=== PATIENT | female | born 1960 ===

== ENCOUNTER 2016-06-12 10:35 | Inpatient (IN) ==
[2016-06-12] MEDS ORDERED: methylPREDNISolone SOD SUC 125 MG/2 ML VIAL IV STA (11:06)
[2016-06-12] MEDS ORDERED: diphenhydrAMINE 50 MG/1 ML VIAL IV STA (11:06)
[2016-06-12] MEDS ORDERED: diphenhydrAMINE 50 MG/1 ML VIAL ONE (11:09)
[2016-06-12] MEDS ORDERED: methylPREDNISolone SOD SUC 125 MG/2 ML VIAL ONE (11:09)
--- NOTE | 2016-06-12 11:10 | Emergency Department Note ---
Imtiaz Robins Brittany, am scribing for, and in the presence of, Chucky Gimenez MD 11:02. Ammy Robins James D, MD, personally performed the services described in this documentation, ascribed by Radha Kitchen in my presence, and it is both accurate and complete . Arrival - Arrival Chief Complaint: Altered Mental Status Stated Complaint: Altered LOC ED Nursing Triage Note: Brought in by EMS-transfer from [facility] ER for further evalution of altered LOC, onset 0400 this morning. Family reports that patient had a revision of left upper arm AV graft yesterday by Dr. Walker. Accucheck 235mg/dl. Mode of Arrival: Stretcher Limitations: Altered Mental Status Source: Patient, Family, RN Notes Reviewed - History of Present Illness HPI Narrative: Patient is a [place] female presenting to the ED by EMS from [facility] for further evaluation of AMS. Per family member AMS onset this morning around 0400. Family also notes that patient had a left upper arm AV graft revision per Dr. Walker yesterday, she was discharged afterwards and sent immediately to take Dialysis and was dialyzed at [facility] for about 3 hours. During triage patient had a accuchek of 235 mg/dL. Patient is nonverbal. She is a dialysis patient and takes dialysis MWF per Dr. Orozco. In room patient is tearful, confused, looks acutely ill, stating she is unsure of what today is. She does not answer questions appropriately. Patient does not know what day of the week, month, or time as of current. Patient is febrile in room. Patient has a dried bloody spot to the upper left arm of her gown, dressing to left upper arm graft is drenched in blood and will need to be redressed. Upon asking if she is in pain, patient reports some abdominal pain and becomes more tearful. While at [facility] patient also had an elevated Troponin of 1.7, creatinine of 7.6, BUN of 28, SGOT of 104, and Blood Glucose level of 188. Patient also had an elevated WBC count of 18.2, MCV of 107.8, RDW of 19.4, Hgb of 6.4, Hct of 22.1. Past medical history of HTN, CAD, PVD, Peripheral Neuropathy, IDDM, NIDDM, Dyslipidemia, Pneumonia, Renal Failure, GERD, Amputation, Intermittent Joint Pain, Anemia. Onset (ago): hour(s) (7) Date of Last Menstrual Period: hysterectomy Allergies/Adverse Reactions: Allergies Allergy/AdvReac Type Severity Reaction Status Date / Time IVP DYE Allergy Unknown Unknown/Unable Uncoded 12/26/15 11:12 to obtain Home Medications: Home Medications Medication Instructions Recorded Confirmed Type Gabapentin 300 mg PO TID 09/27/14 06/12/16 History Aspirin [Ecotrin] 81 mg PO BEDTIME 09/28/14 06/12/16 History Albuterol/Ipratropium Neb [Duoneb] 3 ml RESP TX RT Q8H 04/10/15 06/12/16 History Pantoprazole Tab [Protonix Tab] 40 mg PO DAILY 09/25/15 06/12/16 History Ferrous Sulfate Tab [Feosol 325 mg PO DAILY 11/03/15 06/12/16 History Original Tab] cloNIDine HCl [Clonidine HCl] 0.2 mg PO BID 11/03/15 06/12/16 History Acetaminophen Tab [Tylenol Tab] 650 mg PO Q4H PRN #0 tablet 11/08/15 06/12/16 Rx hydrALAZINE TAB [Apresoline Tab] 100 mg PO TID #90 tablet 11/08/15 06/12/16 Rx Insulin Aspart [NovoLOG FlexPen] 15 unit SUBCUT BIDAC 12/26/15 06/12/16 History Insulin Detemir [Levemir] 20 units SUBCUT BID W/MEALS 12/26/15 06/12/16 History Multivitamin [Multivitamins] 1 each PO DAILY 06/10/16 06/12/16 History NIFEdipine [Nifedipine ER] 60 mg PO DAILY 06/10/16 06/12/16 History Sevelamer Carbonate Tab [Renvela 2,400 mg PO TID W/MEALS 06/10/16 06/12/16 History Tab] HYDROcodone/ACETAMIN 7.5-325 1 tablet PO Q4H PRN #30 tablet 06/11/16 06/12/16 Rx [[place] 7.5-325] Review of System - Review of System ROS unobtainable: due to mental status 12 point system: reviewed and no additional remarkable complaints except as stated - Review of System Constitutional: Present: as per HPI Gastrointestinal: Present: abdominal pain Neurological: Present: confusion Medical,Surgical,& Family Hx - Medical History Cardio: History of: CAD, Hypertension, PVD Neurology: History of: Peripheral Neuropathy No history of: Seizures HEENT: History of: HEENT Problems (seasonal allergies) Endocrine: History of: Diabetes Mellitus (IDDM), Diabetes Mellitus (NIDDM), Dyslipidemia Respiratory: History of: Pneumonia Renal: History of: Dialysis ([place]), Renal Failure Gastrointestinal: History of: GERD Musculoskeletal: History of: Amputation, Musculoskeletal Problems (intermittent joint pain) Hematology: History of: Anemia (anemia of chronic disease) No history of: Blood Transfusion Reaction Other: No history of: Anesthesia Reactions Comment Only: Miscellaneous Medical Problems (AV GRAFT TO LEFT ARM) - Surgical History Thoracic Surgeries: Patient denies;: Organ Transplant HEENT Surgeries: Surgical HX of: Eye Surgery (cataracts) Reproductive Surgeries: Surgical HX of;: Hysterectomy Orthopedic Surgeries: Surgical HX of;: Orthopedic Surgery (amputation of one toe ) - Family History Family History: Reports;: Family Cancer (grandfather), Family Diabetes (mother) , Family Hypertension (mother) Denies;: Family Anesthesia Reaction, Family Heart Disease, Family Psychiatric Problems, Family Stroke - Social History Smoking Status: Unknown if ever smoked Frequency of Alcohol Use: Unknown Type of Drug Use: Unknown Exam Vital Signs: Vital Signs Temperature 97.4 F L 06/12/16 11:52 Pulse Rate 82 06/12/16 11:52 Respiratory Rate 18 06/12/16 11:56 Blood Pressure 150/47 06/12/16 11:52 O2 Sat by Pulse Oximetry 97 06/12/16 10:36 GENERAL: This is a well-nourished well-developed chronically and acutely ill- appearing female, disheveled in no apparent distress. VITAL SIGNS: Reviewed HEENT: Head is atraumatic and normocephalic. Pupils are equal round react to light. Extraocular movements are intact. Oropharynx is benign with moist mucous membranes. NECK: Neck is soft and supple without tenderness. There are no masses. There is no lymphadenopathy. LUNGS: Lungs are clear to auscultation. Chest rises symmetrically. There is no chest wall tenderness. CV: Heart is regular rate and rhythm without murmurs rubs or gallops. ABDOMEN: Abdomen is soft, tender to palpation in the left lower quadrant without rebound or guarding. There are no abdominal abnormal masses palpated. There is no organomegaly. Bowel sounds are present and active. SKIN: Skin is hot to touch and dry. No rash. EXTREMITIES: AV fistula present in the left humeral area with thrill. There is a minimal amount of bleeding from the AV fistula surgery site. There is no pedal edema. NEUROLOGIC: Awake, but disoriented to time place and situation. Cranial nerves II through XII are grossly intact. Motor function: Patient moves all extremities. Course - Consultations Consultation #1: Discussed with Dr. Kristi Palma. Patient will be admitted to her service. Initial orders written for her. Time: 12:30 Consultation #2: Discussed with Dr. Orozco. Time: 12:30 Consultation #3: Discussed with Dr. Peyman Brennan. He will see the patient consultation. Time: 12:20 Procedures - EJ/Peripheral Line Neck L Consent Obtained: verbal consent Time Out Performed: Yes Skin Cleansed in Sterile Fashion: Yes Size: 18 IV Secured and Dressing Applied: Yes Patient Tolerated Procedure: well Additional Comments: Aspirated well, flushed well. Results - Labs CBC & BMP: 06/12/16 11:27 06/12/16 11:27 Lab Results: I have reviewed the patients labs Labs: Laboratory Tests 06/12/16 06/12/16 10:41 11:18 ABG pH 7.426 ABG pCO2 45.6 ABG pO2 91.6 ABG HCO3 29.1 H ABG Total CO2 28.8 H ABG O2 Saturation 97.1 ABG Base Excess 5.1 H POC Glucose 235 H Laboratory Tests 06/12/16 06/12/16 06/12/16 10:41 11:27 11:27 WBC 16.1 H Hgb 5.6 L* Hct 18.2 L Plt Count 110 L D Circ Anticoag PTT Sodium 143 Potassium 5.1 Chloride 99 Carbon Dioxide 28 Anion Gap 21.1 H BUN 31 H Creatinine 7.90 H BUN/Creatinine Ratio 3.00 L Glucose 209 H POC Glucose 235 H Calculated Osmolality 297.0 Total Bilirubin 0.60 AST 149 H ALT 30 Ammonia 16 Troponin I 3.300 H 06/12/16 11:27 WBC Hgb Hct Plt Count Circ Anticoag PTT 22.5 Sodium Potassium Chloride Carbon Dioxide Anion Gap BUN Creatinine BUN/Creatinine Ratio Glucose POC Glucose Calculated Osmolality Total Bilirubin AST ALT Ammonia Troponin I - EKG EKG results: interpreted by ERMD - Impressions EKG: Normal sinus rhythm with rate of 79, normal ST-T waves, normal axis. - Diagnostic Findings Procedure: Chest x-ray: image reviewed by me (Cardiomegaly, no infiltrates, no pleural effusions.), CT Abdomen and Pelvis: image reviewed by me, CT: report reviewed by me, image reviewed by me (CT head report from transferring facility : No acute intracranial abnormalities. Maxillary sinusitis.) Critical Care Time Critical Care Time: Yes Total Critical Care Time: 75 Attestation: Patient stinson EJ peripheral line placed. Multiple labs were performed. The patient was treated for non-ST elevation CO. Multiple consults were obtained including cardiology, medicine, nephrology. Disposition Clinical Impression: Acute encephalopathy, End stage renal disease on dialysis, Anemia, Altered level of consciousness, Elevated troponin, Thrombocytopenia Case discussed with: patient, patient's family Condition: Critical Time of Disposition: 11:15
[2016-06-12 11:19] LABS: ABG Base Excess 5.1 MMOL/L (-2.5-2.5); ABG HCO3 29.1 MMOL/L (20-26); ABG Oxygen Saturation 97.1 % (95-100); ABG PCO2 45.6 MM HG (35-48); ABG PH 7.426 (7.35-7.45); ABG PO2 91.6 MM HG (80-95); ABG TCO2 28.8 MMOL/L (23-27)
--- NOTE | 2016-06-12 11:21 | EKG Report ---
Stationary ECG Study [facility] ER Test Date: 06/12/2016 10:45:32 AM Pat Name: DANIELA BECERRA Department: Room: Gender: F Field Assistant: : 1960 Requested by: Chucky Zhao Order Number: [id number] Reading MD: ELIAS BARROW Intervals [place] Rate: 79 P: 34 [place]: 176 QRS: 1 QRSD: 95 T: 29 QT: 413 QTc: 447 Interpretive Statements SINUS RHYTHM Minimal ST depression Electronically Signed On 06-15-16 10:56:36 CDT by ELIAS BARROW [email or web address]
[2016-06-12 11:53] LABS: Basophils % 0.1 % (0.0-0.8); Eosinophils % 0.1 % (0.00-10.9); Hematocrit 18.2 VOL% (35.7-47.0); Immature Granulocytes % 1.4 %; Immature Granulocytes Absolute 0.22 #; Lymphocytes # 2.1 10*3/uL (1.4-4.0); Mean Corpuscular HGB Conc 30.8 GM/DL (32-36); Mean Corpuscular Hemoglobin 32 PG (27-34); Mean Corpuscular Volume 102.8 FL (87-102); Mean Platelet Volume 10.8 FL (9.6-12.0); Monocytes # 1.1 10*3/uL (0.11-0.8); Monocytes % 6.5 % (1.7-12.7); NRBC # 0.08 10*3/uL; Neutrophils # 12.7 10*3/uL (1.4-7.4); Neutrophils % 78.9 % (38.7-73.9); Platelet Count 110 T/CUMM (130-400); Red Blood Count 1.77 MC/CUMM (3.8-5.5); Red Cell Distribution Width 19.4 % (9.3-17.3); White Blood Count 16.1 T/CUMM (4-12)
[2016-06-12 11:57] LABS: Hemoglobin 5.6 GM/DL (12.0-16.0)
--- NOTE | 2016-06-12 12:05 | XRay Report ---
Exam: XR chest 1V portable Indication: Cardiomegaly Comparison study: 12/26/2015 Findings: Cardiac silhouette is enlarged, similar to prior. Perihilar interstitial opacities are noted which may represent a degree of pulmonary interstitial edema and/or atelectasis/contusions. There is no pneumothorax. Soft tissue richy within the left axillary region/proximal arm are noted. Impression: Cardiomegaly with perihilar and basilar interstitial opacities may represent atelectatic changes versus contusion/infiltrate or pulmonary edema changes. No pneumothorax. PROCEDURE INTERPRETED AT [facility] DEPARTMENT OF RADIOLOGY Final Report Signed by: Roland Quiroz
[2016-06-12 12:20] LABS: Albumin 2.9 G/DL (3.4-5.0); Bilirubin,Total 0.6 MG/DL (0.2-1.0); Potassium 5.1 MMOL/L (3.5-5.1); Total Protein 6.1 G/DL (6.4-8.3)
[2016-06-12 12:22] LABS: Troponin I Only 3.3 NG/ML (0.00-0.045)
[2016-06-12] MEDS ORDERED: ASPIRIN 325 MG TABLET PO STA (12:25)
[2016-06-12 12:26] LABS: Free T4 (Free Thyroxine) 1.37 NG/DL (0.76-1.46)
[2016-06-12] MEDS ORDERED: MORPHINE 2 MG/1 ML SYRINGE IV STA (12:26)
[2016-06-12] MEDS ORDERED: ONDANSETRON 4 MG/2 ML VIAL IV STA (12:26)
[2016-06-12] MEDS ORDERED: ENOXAPARIN 40 MG/0.4 ML SYRINGE SUBCUT STA (12:29)
--- NOTE | 2016-06-12 12:29 | CT Report ---
History: Altered level of consciousness. Encephalopathy Date: 06/12/2016 Study: CT head without contrast Comparison exam: January 23, [address] exam was performed using one or more of the following dose reduction techniques: Automated exposure control and adjustment of the mA and/or kV according to patient size. Transaxial CT sections were obtained through the head without IV contrast. Total DLP measures 997.9 mGy*cm. The ventricles are midline in position without evidence of hydrocephalus. There is no mass effect or parenchymal hemorrhage. There is no gross CT evidence of acute cortical stroke. There is no extra-axial hematoma. There is no acute abnormality of the calvarium. There is some prominent polypoid mucosal thickening in the right maxillary sinus with mild similar changes on the left. There is mild distal carotid artery calcification. Impression: No acute intracranial abnormality. Chronic sinus disease PROCEDURE INTERPRETED AT [facility] DEPARTMENT OF RADIOLOGY Final Report Signed by: Dr. Cari Flores
--- NOTE | 2016-06-12 12:52 | CT Report ---
CT abdomen pelvis w con Indication: Midline lower abdominal pain Comparison: CT abdomen pelvis dated 11/03/2015. Technique: CT of the abdomen and pelvis was performed following administration of intravenous contrast. Coronal and sagittal reformatted images were additionally created and submitted for review. The total DLP is 2000 289 mGy*cm. Dose reduction: This CT exam was performed using one or more of the following dose reduction techniques: Automated exposure control, automated adjustment of the mA and/or KV according to patient size, or use of iterative reconstruction technique. Findings: Very minimal posterior basilar dependent atelectatic changes are noted bilaterally. Lung bases are otherwise clear. There is no pleural or pericardial effusion. Four-chamber cardiomegaly is suggested on this nongated study ABDOMEN: Liver/Gallbladder: Cholecystectomy clips are noted. No abnormal enhancing hepatic lesions are visualized. There is no biliary ductal dilatation. Portal vein appears patent. Spleen: No acute findings. Pancreas: No acute findings. Adrenals: Both adrenal glands demonstrate fat density 1 cm lesions which are stable in size from prior and most compatible with myelolipomas. Kidneys: Limited enhancement is noted within both kidneys consistent with chronic medical renal disease. Bowel/mesentery: Small bowel is nondilated. There is no free fluid/free air within the abdomen. There is no mesenteric adenopathy. Patient motion limits evaluation within the abdomen. The colon is nondilated and otherwise diffusely filled with stool. A few sigmoid colon diverticula are noted. There is no CT evidence of acute diverticulitis. The appendix is not definitely identified. There is no secondary sign of acute appendicitis. Retroperitoneum: No evidence of aortic aneurysm or significant retroperitoneal adenopathy. PELVIS: Left groin approach tunneled dialysis catheter is noted in place with the tip terminating in the suprarenal inferior vena cava Bladder is nondistended and otherwise poorly evaluated. There has been a prior hysterectomy. There is no free fluid in the dependent pelvis. There is no pelvic adenopathy. BONES: No acute or suspicious osseous abnormalities are identified. Multilevel mild degenerative changes are noted within the lower lumbar spine IMPRESSION: 1. No acute abnormality within the abdomen or pelvis to explain patient's symptoms. 2. 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 06/12/2016 12:43 PM PROCEDURE INTERPRETED AT [facility] DEPARTMENT OF RADIOLOGY Final Report Signed by: Roland Quiroz
[2016-06-12] MEDS ORDERED: SODIUM CHLORIDE 0.9% 1,000 ML IV SCH (13:41)
[2016-06-12] MEDS ORDERED: ONDANSETRON 4 MG/2 ML VIAL IV PRN (13:41)
[2016-06-12] MEDS ORDERED: SODIUM CHLORIDE 0.9% 250 ML IV PRN ×2 (13:56→14:03)
[2016-06-12] MEDS ORDERED: VANCOMYCIN INJ 1,000 MG in SODIUM CHLORIDE 0.9% 250 ML IV ONE (13:57)
--- NOTE | 2016-06-12 14:03 | Nephrology Consult Note ---
History of Present Illness Chief complaint: ESRD, confusion History of present illness: Ms. Travis is a 56 year old female with ESRD secondary to diabetes. She had bleeding from her left upper arm access on 06/10/2016. This was revised by Dr. Walker he also placed a femoral dialysis catheter at the same time. She was observed overnight and discharged the next day. She dialyzed as an outpatient yesterday in [place]. Dialysis nurses there report her mental status was normal then. She had no problems with hypotension and was afebrile. Catheter flow rate was slower near the end of treatment but no other problems encountered. She presented to the ER today with confusion which was noted by her family. She answers some simple questions. See answers yes to abdominal pain and has had a CT to evaluate this. No pathology to explain her symptoms was apparent. Home Medications Medication Instructions Recorded Confirmed Type Gabapentin 300 mg PO TID 09/27/14 06/12/16 History Aspirin [Ecotrin] 81 mg PO BEDTIME 09/28/14 06/12/16 History Albuterol/Ipratropium Neb [Duoneb] 3 ml RESP TX RT Q8H 04/10/15 06/12/16 History Pantoprazole Tab [Protonix Tab] 40 mg PO DAILY 09/25/15 06/12/16 History Ferrous Sulfate Tab [Feosol 325 mg PO DAILY 11/03/15 06/12/16 History Original Tab] cloNIDine HCl [Clonidine HCl] 0.2 mg PO BID 11/03/15 06/12/16 History Acetaminophen Tab [Tylenol Tab] 650 mg PO Q4H PRN #0 tablet 11/08/15 06/12/16 Rx hydrALAZINE TAB [Apresoline Tab] 100 mg PO TID #90 tablet 11/08/15 06/12/16 Rx Insulin Aspart [NovoLOG FlexPen] 15 unit SUBCUT BIDAC 12/26/15 06/12/16 History Insulin Detemir [Levemir] 20 units SUBCUT BID W/MEALS 12/26/15 06/12/16 History Multivitamin [Multivitamins] 1 each PO DAILY 06/10/16 06/12/16 History NIFEdipine [Nifedipine ER] 60 mg PO DAILY 06/10/16 06/12/16 History Sevelamer Carbonate Tab [Renvela 2,400 mg PO TID W/MEALS 06/10/16 06/12/16 History Tab] HYDROcodone/ACETAMIN 7.5-325 1 tablet PO Q4H PRN #30 tablet 06/11/16 06/12/16 Rx [[place] 7.5-325] Allergies Allergy/AdvReac Type Severity Reaction Status Date / Time IVP DYE Allergy Unknown Unknown/Unable Uncoded 12/26/15 11:12 to obtain Medical,Surgical,& Family Hx - Medical History Cardio: History of: CAD, Hypertension, PVD Neurology: History of: Peripheral Neuropathy No history of: Seizures HEENT: History of: HEENT Problems (seasonal allergies) Endocrine: History of: Diabetes Mellitus (IDDM), Diabetes Mellitus (NIDDM), Dyslipidemia Respiratory: History of: Pneumonia Renal: History of: Dialysis ([place]), Renal Failure Gastrointestinal: History of: GERD Musculoskeletal: History of: Amputation, Musculoskeletal Problems (intermittent joint pain) Hematology: History of: Anemia (anemia of chronic disease) No history of: Blood Transfusion Reaction Other: No history of: Anesthesia Reactions Comment Only: Miscellaneous Medical Problems (AV GRAFT TO LEFT ARM) - Surgical History Thoracic Surgeries: Patient denies;: Organ Transplant HEENT Surgeries: Surgical HX of: Eye Surgery (cataracts) Reproductive Surgeries: Surgical HX of;: Hysterectomy Orthopedic Surgeries: Surgical HX of;: Orthopedic Surgery (amputation of one toe ) - Family History Family History: Reports;: Family Cancer (grandfather), Family Diabetes (mother) , Family Hypertension (mother) Denies;: Family Anesthesia Reaction, Family Heart Disease, Family Psychiatric Problems, Family Stroke - Social History Smoking Status: Unknown if ever smoked Frequency of Alcohol Use: Unknown Type of Drug Use: Unknown Review of Systems ROS unobtainable: due to mental status Exam - Vital Signs Exam: Gen.: Alert but confused ENT: Pupils equal round reactive to light. EOMs intact. Mucous membranes moist. Neck: Supple. No JVD or bruit. Cardiovascular: Regular rate and rhythm. No murmur rub or gallop Lungs: Clear Abdomen: Soft. Minimal right lower quadrant tenderness Positive bowel sounds. No organomegaly Extremities: No edema Results - Labs CBC & BMP: 06/12/16 11:27 06/12/16 11:27 Assessment and Plan (1) Acute encephalopathy Status: Acute Assessment and plan: 56-year-old woman admitted with: * Acute encephalopathy. Etiology unclear. CT head shows no acute changes. Rule out sepsis. Blood cultures have been obtained. Empiric antibiotics including vancomycin and gentamicin will be given. * Elevated troponin. Cardiology is been consulted * ESRD. She will be dialyzed today in order to facilitate transfusion * Anemia. Hemoglobin 9.9 as an outpatient on 06/03/2016. This dropped to 6.8 on 06/10/2016 when she had bleeding from her access. It is lower today at 5.6. She will be transfused during dialysis * Recent revision of left upper arm access. She has some oozing from it. This does not appear purulent. Dr. Mcintosh follow-up * Diabetes mellitus * Hypertension Current Visit: Yes (2) Anemia Status: Acute Current Visit: Yes (3) Elevated troponin Status: Acute Current Visit: Yes (4) End stage renal disease on dialysis Status: Acute Current Visit: Yes (5) Diabetes mellitus Status: Chronic Current Visit: No Qualifiers: Diabetes mellitus type: type 2 Diabetes mellitus complication detail: with chronic kidney disease Chronic kidney disease stage: on chronic dialysis (6) Hypertension Problem details: Has been well controlled. Status: Chronic Current Visit: No Qualifiers: Hypertension type: essential hypertension Qualified Code(s): I10 - Essential (primary) hypertension
--- NOTE | 2016-06-12 14:40 | EKG Report ---
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
--- NOTE | 2016-06-12 15:26 | Cardiology Consult Note ---
Assessment and Plan (1) Acute encephalopathy Status: Acute Assessment and plan: Workup underway Current Visit: Yes (2) Altered level of consciousness Status: Acute Current Visit: Yes (3) Anemia Status: Acute Assessment and plan: The patient has a profound anemia. She had a recent AV fistula revision. It's unclear if that is related to her anemia or this is coming from some other source. There is no obvious gastrointestinal blood loss at this time but we can screen for that. She is going to need a transfusion. Current Visit: Yes (4) Elevated troponin Status: Acute Assessment and plan: The patient has a very mild bump in cardiac troponin in the setting of marked mental status changes and profound anemia. She does not have any evidence of ischemia on her EKG and no history of coronary artery disease. At this time, I would manage her cardiac status conservatively, as she is hemodynamically stable. We need to get her mental status change workup and get her anemia stabilized. It is possible that she could have increased troponin simply related to the profound anemia. At any rate, I don't see any evidence of an acute coronary syndrome at this time. Current Visit: Yes (5) End stage renal disease on dialysis Status: Acute Assessment and plan: Nephrology is managing this Current Visit: Yes (6) Thrombocytopenia Status: Acute Current Visit: Yes (7) Diabetes mellitus Status: Chronic Assessment and plan: I will defer management to internal medicine Current Visit: No Qualifiers: Diabetes mellitus type: type 2 Diabetes mellitus complication detail: with chronic kidney disease Chronic kidney disease stage: on chronic dialysis (8) Hypertension Problem details: Has been well controlled. Status: Chronic Current Visit: No Qualifiers: Hypertension type: essential hypertension Qualified Code(s): I10 - Essential (primary) hypertension History of Present Illness - Consult Narrative History of present illness: Ms. Travis is a 56 year old female who has a history of end-stage renal disease, dialysis, and hypertension. She has known history of cardiac disease. The patient underwent an AV fistula revision yesterday. At some time in the middle of the night, she apparently became confused with mental status changes. She was taken to her local hospital for evaluation and subsequently transferred here for definitive care. The patient was noted to have a mild increase in troponin to around 3, and I was asked to see her related to this lab abnormality. However, his known history of cardiac disease or anginal symptoms. Her EKG does not show any significant changes. It is also noted that the patient has a profound anemia with a hemoglobin of 5.6. At the time I was seeing the patient she was really confused and nonverbal. She could not really give any significant history so it is primarily obtained from the chart and hospital staff. The patient does have some swelling and apparent discomfort in her left arm at the side of her AV fistula. CC: Kristi Palma, DO - Home Medications and Allergies Home Medications: Home Medications Medication Instructions Recorded Confirmed Type Gabapentin 300 mg PO TID 09/27/14 06/12/16 History Aspirin [Ecotrin] 81 mg PO BEDTIME 09/28/14 06/12/16 History Albuterol/Ipratropium Neb [Duoneb] 3 ml RESP TX RT Q8H 04/10/15 06/12/16 History Pantoprazole Tab [Protonix Tab] 40 mg PO DAILY 09/25/15 06/12/16 History Ferrous Sulfate Tab [Feosol 325 mg PO DAILY 11/03/15 06/12/16 History Original Tab] cloNIDine HCl [Clonidine HCl] 0.2 mg PO BID 11/03/15 06/12/16 History Acetaminophen Tab [Tylenol Tab] 650 mg PO Q4H PRN #0 tablet 11/08/15 06/12/16 Rx hydrALAZINE TAB [Apresoline Tab] 100 mg PO TID #90 tablet 11/08/15 06/12/16 Rx Insulin Aspart [NovoLOG FlexPen] 15 unit SUBCUT BIDAC 12/26/15 06/12/16 History Insulin Detemir [Levemir] 20 units SUBCUT BID W/MEALS 12/26/15 06/12/16 History Multivitamin [Multivitamins] 1 each PO DAILY 06/10/16 06/12/16 History NIFEdipine [Nifedipine ER] 60 mg PO DAILY 06/10/16 06/12/16 History Sevelamer Carbonate Tab [Renvela 2,400 mg PO TID W/MEALS 06/10/16 06/12/16 History Tab] HYDROcodone/ACETAMIN 7.5-325 1 tablet PO Q4H PRN #30 tablet 06/11/16 06/12/16 Rx [[place] 7.5-325] Allergies/Adverse Reactions: Allergies Allergy/AdvReac Type Severity Reaction Status Date / Time IVP DYE Allergy Unknown Unknown/Unable Uncoded 12/26/15 11:12 to obtain ROS unobtainable: due to mental status Medical,Surgical,& Family Hx - Medical History Cardio: History of: Hypertension, PVD Neurology: History of: Peripheral Neuropathy No history of: Seizures HEENT: History of: HEENT Problems (seasonal allergies) Endocrine: History of: Diabetes Mellitus (IDDM), Diabetes Mellitus (NIDDM), Dyslipidemia Respiratory: History of: Pneumonia Renal: History of: Dialysis (beth OROZCO), Renal Failure Gastrointestinal: History of: GERD Musculoskeletal: History of: Amputation, Musculoskeletal Problems (intermittent joint pain) Hematology: History of: Anemia (anemia of chronic disease) No history of: Blood Transfusion Reaction Other: No history of: Anesthesia Reactions Comment Only: Miscellaneous Medical Problems (AV GRAFT TO LEFT ARM) - Surgical History Thoracic Surgeries: Patient denies;: Organ Transplant HEENT Surgeries: Surgical HX of: Eye Surgery (cataracts) Reproductive Surgeries: Surgical HX of;: Hysterectomy Orthopedic Surgeries: Surgical HX of;: Orthopedic Surgery (amputation of one toe ) - Family History Family History: Reports;: Family Cancer (grandfather), Family Diabetes (mother) , Family Hypertension (mother) Denies;: Family Anesthesia Reaction, Family Heart Disease, Family Psychiatric Problems, Family Stroke - Social History Smoking Status: Current every day smoker Frequency of Alcohol Use: Unknown Type of Drug Use: Unknown Physical Examination Vital Signs Temp Pulse Resp BP Pulse Ox 97.4 F L 82 20 150/47 97 06/12/16 10:36 06/12/16 10:36 06/12/16 10:36 06/12/16 10:36 06/12/16 10:36 Other: General: Appears well developed, well nourished, obese, confused HEENT: Normocephalic, atraumatic Neck: Supple Neck, Midline Trachea, No Bruit, No JVD Cardiac: Reg Rate and Rhythm, No Murmur, no gallop, no rub Lungs: Coarse breath sounds on uncooperative exam Neuro: The patient is confused and unable to follow commands or answer questions properly Abdomen: Soft, Active Bowel Sounds, No Masses, No Pulsations/Bruits Skin: Normal color, no rash Extremities: No Clubbing, No Cyanosis, No Edema, Normal Upper Extr. Pulses, left upper extremity shows some swelling and tenderness Musculoskeletal: No acute abnormality noted Psychiatric: Seems confused and disoriented Result/EKG - Labs CBC & BMP: 06/12/16 11:27 06/12/16 11:27 Lab Results: I have reviewed the past 24 hour labs Labs: Laboratory Results - last 24 hr 06/12/16 06/12/16 14:05 14:06 Troponin I 4.220 H D Blood Type Cancelled Antibody Screen Cancelled Crossmatch See Detail Blood Bank Comment Cancelled - EKG EKG results: interpreted by me
[2016-06-12] MEDS: MORPHINE 2 MG/1 ML SYRINGE IV PRN ×3 (15:38→22:17)
[2016-06-12] MEDS ORDERED: GENTAMICIN INJ 100 MG in PREMIX 1 EACH IV ONE (16:00)
--- NOTE | 2016-06-12 18:15 | Internal Med History&Physical ---
Assessment and Plan (1) Acute encephalopathy Status: Acute Current Visit: Yes (2) Altered level of consciousness Status: Acute Current Visit: Yes (3) Anemia Problem details: acute blood loss Status: Acute Current Visit: Yes Qualifiers: Anemia type: other cause Other causes of anemia: chronic disease, kidney Qualified Code(s): N18.9 - Chronic kidney disease, unspecified; D63.1 - Anemia in chronic kidney disease (4) Elevated troponin Status: Acute Current Visit: Yes (5) End stage renal disease on dialysis Status: Chronic Current Visit: Yes (6) Thrombocytopenia Status: Acute Current Visit: Yes (7) Abdominal pain Status: Acute Current Visit: Yes Qualifiers: Abdominal location: generalized Qualified Code(s): R10.84 - Generalized abdominal pain (8) Diabetes mellitus Status: Chronic Current Visit: Yes Qualifiers: Diabetes mellitus type: type 2 Diabetes mellitus complication detail: with chronic kidney disease Diabetes mellitus shelter insulin use: with shelter use Chronic kidney disease stage: on chronic dialysis (9) Essential hypertension Status: Chronic Current Visit: Yes (10) Peripheral neuropathy Status: Chronic Current Visit: Yes Qualifiers: Peripheral neuropathy type: polyneuropathy, unspecified Qualified Code(s): G62.9 - Polyneuropathy, unspecified History of Present Illness Chief complaint: acute altered mental status History of present illness: Ms. Travis is a 56 year old female with history of DM, HTN, dylsipidemia, anemia chronic disease, ESRD on hemodialysis per Dr. Orozco, who presented to ER with acute altered mental status and was found to have severe anemia with hemoglobin of about 5. She was admitted to ICU and is currently undergoing hemodialysis along with blood transfusion. Troponin elevated, likely from profound anemia. Concerned she has had blood loss ischemia. She recently has had fistula revision per Dr. Walker, and site has bled at least over night. Home Medications Medication Instructions Recorded Confirmed Type Gabapentin 300 mg PO TID 09/27/14 06/12/16 History Aspirin [Ecotrin] 81 mg PO BEDTIME 09/28/14 06/12/16 History Albuterol/Ipratropium Neb [Duoneb] 3 ml RESP TX RT Q8H 04/10/15 06/12/16 History Pantoprazole Tab [Protonix Tab] 40 mg PO DAILY 09/25/15 06/12/16 History Ferrous Sulfate Tab [Feosol 325 mg PO DAILY 11/03/15 06/12/16 History Original Tab] cloNIDine HCl [Clonidine HCl] 0.2 mg PO BID 11/03/15 06/12/16 History Acetaminophen Tab [Tylenol Tab] 650 mg PO Q4H PRN #0 tablet 11/08/15 06/12/16 Rx hydrALAZINE TAB [Apresoline Tab] 100 mg PO TID #90 tablet 11/08/15 06/12/16 Rx Insulin Aspart [NovoLOG FlexPen] 15 unit SUBCUT BIDAC 12/26/15 06/12/16 History Insulin Detemir [Levemir] 20 units SUBCUT BID W/MEALS 12/26/15 06/12/16 History Multivitamin [Multivitamins] 1 each PO DAILY 06/10/16 06/12/16 History NIFEdipine [Nifedipine ER] 60 mg PO DAILY 06/10/16 06/12/16 History Sevelamer Carbonate Tab [Renvela 2,400 mg PO TID W/MEALS 06/10/16 06/12/16 History Tab] HYDROcodone/ACETAMIN 7.5-325 1 tablet PO Q4H PRN #30 tablet 06/11/16 06/12/16 Rx [[place] 7.5-325] Allergies Allergy/AdvReac Type Severity Reaction Status Date / Time IVP DYE Allergy Unknown Unknown/Unable Uncoded 12/26/15 11:12 to obtain Medical,Surgical,& Family Hx - Medical History Cardio: History of: CAD, Hypertension, PVD Neurology: History of: Peripheral Neuropathy No history of: Seizures HEENT: History of: HEENT Problems (seasonal allergies) Endocrine: History of: Diabetes Mellitus (IDDM), Dyslipidemia Respiratory: History of: Pneumonia Renal: History of: Dialysis ([facility] DR OROZCO), Renal Failure Gastrointestinal: History of: GERD Musculoskeletal: History of: Amputation, Musculoskeletal Problems (intermittent joint pain) Hematology: History of: Anemia (anemia of chronic disease) No history of: Blood Transfusion Reaction Other: No history of: Anesthesia Reactions Comment Only: Miscellaneous Medical Problems (AV GRAFT TO LEFT ARM) - Surgical History Thoracic Surgeries: Patient denies;: Organ Transplant HEENT Surgeries: Surgical HX of: Eye Surgery (cataracts) Reproductive Surgeries: Surgical HX of;: Hysterectomy Orthopedic Surgeries: Surgical HX of;: Orthopedic Surgery (amputation of one toe ) - Family History Family History: Reports;: Family Cancer (grandfather), Family Diabetes (mother) , Family Hypertension (mother) Denies;: Family Anesthesia Reaction, Family Heart Disease, Family Psychiatric Problems, Family Stroke - Social History Smoking Status: Current every day smoker Frequency of Alcohol Use: Unknown Type of Drug Use: Unknown Marital Status: Lives With:: Spouse Functional capacity: uses cane/walker ROS unobtainable: due to mental status, other (history per ER, nurse, and records) - Constitutional Constitutional: Present: malaise - Musculoskeletal Musculoskeletal: Present: myalgias (at site of fistula revision) - Neurological Neurological: Present: confusion - Hematologic/Lymphatic Hematologic/Lymphatic: Present: other (bleeding from revision site) Exam - Constitutional Vitals: Period Temp Pulse Resp BP Sys/Stevens Pulse Ox Last 24 Hr 69-75 157-169/60-68 99-99 General appearance: mild distress (appears uncomfortable) - Head Head exam: Present: normocephalic - Respiratory Respiratory exam: Present: decreased breath sounds, prolonged expiratory phase - Cardiovascular Cardiovascular exam: Present: regular rate and rhythm - GI/Abdominal GI/Abdominal exam: Present: distended, firm, hypoactive bowel sounds - Extremities Exam Extremities exam: Absent: edema - Neurological Exam Neurological exam: Present: altered - Psychiatric Psychiatric exam: Present: anxious - Skin Skin exam: Present: warm Results - Labs CBC & BMP: 06/12/16 11:27 06/12/16 11:27 - EKG EKG shows: sinus rhythm - Diagnostic Findings Procedure: Chest x-ray: report reviewed by me (atelectasis vs infiltrate), CT Abdomen and Pelvis: report reviewed by me (constipation), CT: report reviewed by me (chronic sinus disease)
[2016-06-12] MEDS: hydrALAZINE 20 MG/1 ML VIAL IV PRN (18:59)
[2016-06-12] MEDS: ENOXAPARIN 30 MG/0.3 ML SYRINGE SUBCUT SCH (19:23)
[2016-06-12] MEDS: DOCUSATE SODIUM 100 MG CAPSULE PO SCH (20:27)
[2016-06-12] MEDS: INSULIN REGULAR 100 UNIT/ML SUBCUT SCH (20:30)
[2016-06-12] MEDS ORDERED: GLUCAGON 1 MG VIAL IM PRN (20:45)
[2016-06-12] MEDS ORDERED: DEXTROSE 50% 25 GM/50 ML VIAL IV PRN (20:45)
[2016-06-12] MEDS ORDERED: MORPHINE 2 MG/1 ML SYRINGE IV PRN (21:58)
[2016-06-12] MEDS ORDERED: cloNIDine 0.1 MG/24 HR PATCH TRANSDERM SCH (22:00)
[2016-06-12] MEDS: fentaNYL 25 MCG/HR PATCH TRANSDERM SCH (22:27)
[2016-06-12] MEDS: INSULIN REGULAR 100 UNIT/ML IV SCH (22:54)
[2016-06-12] MEDS ORDERED: POLYETHYLENE GLYCOL POWDER 17 GM PACK PO ONE (23:00)
[2016-06-13] MEDS ORDERED: INSULIN REGULAR 100 UNIT/ML ONE ×3 (00:28→19:02)
[2016-06-13] MEDS: INSULIN REGULAR 100 UNIT/ML SUBCUT SCH ×3 (00:31→20:21)
[2016-06-13] MEDS: ALBUTEROL/IPRATROPIUM 3 ML NEB RESP TX SCH ×4 (01:55→20:19)
[2016-06-13] MEDS: hydrALAZINE 20 MG/1 ML VIAL IV PRN ×2 (02:29→10:37)
--- NOTE | 2016-06-13 04:07 | Event Note ---
General Surgery Progress Note Chief complaint This patient is a 56-year-old woman who had repair of a bleeding AV fistula and was readmitted with altered mental status Interval history The patient is alert this morning but she is still not fully oriented. She is not complaining of any pain in her arm today. Physical exam The patient is afebrile with normal vital signs Left arm incisions are clean with no hematoma or infection. There is no swelling or tenderness in the distal forearm does describe numbness yesterday. There is still a bruit in the graft. Labs Reviewed Imaging Reviewed Assessment and plan Leave richy in place and do not use graft for now. Apparently there is some difficulty with flows on the dialysis catheter towards the end of her run we will see how the femoral dialysis catheter works over the next couple rounds but it should work fine based on operative findings.
[2016-06-13 05:55] LABS: Basophils % 0.1 % (0.0-0.8); Eosinophils % 0.1 % (0.00-10.9); Hemoglobin 9.4 GM/DL (12.0-16.0); Immature Granulocytes Absolute 0.47 #; Lymphocytes # 1.2 10*3/uL (1.4-4.0); Mean Corpuscular HGB Conc 32.4 GM/DL (32-36); Mean Corpuscular Hemoglobin 32 PG (27-34); Mean Corpuscular Volume 98.6 FL (87-102); Mean Platelet Volume 11.2 FL (9.6-12.0); Monocytes # 1.2 10*3/uL (0.11-0.8); Monocytes % 7.9 % (1.7-12.7); NRBC # 0.24 10*3/uL; Neutrophils # 12.5 10*3/uL (1.4-7.4); Neutrophils % 80.9 % (38.7-73.9); Platelet Count 123 T/CUMM (130-400); Red Blood Count 2.94 MC/CUMM (3.8-5.5); Red Cell Distribution Width 17.5 % (9.3-17.3); White Blood Count 15.5 T/CUMM (4-12)
[2016-06-13 06:45] LABS: Albumin 3.2 G/DL (3.4-5.0); CKMB % 0.5 %; Calcium 8.6 MG/DL (8.5-10.1); Potassium 4.4 MMOL/L (3.5-5.1); Total Protein 6.6 G/DL (6.4-8.3)
[2016-06-13 06:46] LABS: Troponin I Only 5.35 NG/ML (0.00-0.045)
--- NOTE | 2016-06-13 08:52 | EKG Report ---
Stationary ECG Study [facility] Test Date: 06/13/2016 8:52:51 AM Pat Name: DANIELA BECERRA Department: Room: 108 Gender: F Caisson Worker: DIPESH : 1960 Requested by: Samir Martinez Order Number: [id number] Reading MD: ELIAS BARROW Intervals [place] Rate: 81 P: 51 VT: 159 QRS: -14 QRSD: 106 T: 61 QT: 397 QTc: 434 Interpretive Statements SINUS RHYTHM Electronically Signed On 06-15-16 12:58:05 CDT by ELIAS BARROW [email or web address]
--- NOTE | 2016-06-13 09:30 | Cardiology Progress Note ---
I, Yumiko Ely RN, am scribing for, and in the presence of, Juan Brennan MD 09:30. Assessment and Plan - Time spent with patient Time spent with patient: Less than 30 minutes (1) Acute encephalopathy Status: Acute Assessment and plan: Workup is underway. Will defer primary management to internal medicine. Current Visit: Yes (2) Altered level of consciousness Status: Acute Assessment and plan: She is still drowsy today but is more cooperative and answers questions appropriately. Current Visit: Yes (3) Anemia Problem details: acute blood loss Status: Acute Assessment and plan: Received 3 units packed red blood cells overnight. Anemia is somewhat improved today, and H&H this morning is 9.4 and 29.0. Current Visit: Yes Qualifiers: Anemia type: other cause Other causes of anemia: chronic disease, kidney Qualified Code(s): N18.9 - Chronic kidney disease, unspecified; D63.1 - Anemia in chronic kidney disease (4) Elevated troponin Status: Acute Assessment and plan: I think the mild elevation in troponin is related to supply demand ischemia from profound anemia. She does not have any signs or symptoms of ACS at this time. There have been no changes in her EKG or rhythm. I would continue to workup and treatment the source of her anemia and encephalopathy. I would continue conservative cardiac management for now. Current Visit: Yes (5) Thrombocytopenia Status: Acute Current Visit: Yes (6) Diabetes mellitus Status: Chronic Assessment and plan: Defer primary management to internal medicine Current Visit: Yes Qualifiers: Diabetes mellitus type: type 2 Diabetes mellitus complication detail: with chronic kidney disease Diabetes mellitus machine fastener insulin use: with correction use Chronic kidney disease stage: on chronic dialysis (7) End stage renal disease on dialysis Status: Chronic Assessment and plan: Patient is on routine hemodialysis Friday, Friday, and Friday. Nephrology is following and they will manage this Current Visit: Yes (8) Hypertension Problem details: Has been well controlled. Status: Chronic Assessment and plan: Suboptimally controlled at this time. Adjust medication regimen as needed. Current Visit: No Qualifiers: Hypertension type: essential hypertension Qualified Code(s): I10 - Essential (primary) hypertension Cardiology - PN: Subj Interval history: Patient is closely monitored in ICU this morning. She is resting quietly and appears comfortable. She does wake up today and answers questions appropriately , but does still seem slightly confused. Denies chest pain, dyspnea, or other complaints overnight. Anemia with some improvement after receiving 3 units of packed red blood cells overnight. H&H this morning is 9.4 and 29.0. Thrombocytopenia is noted. Potassium is 4.3. Has had mild elevation in troponin levels, and troponin this morning 5.350. Sinus rhythm per telemetry monitoring, pulse rate is in the 70s, and there has been no overt ectopy or dysrhythmia. Her EKG is normal. There are no changes of ischemia or infarction. Current Medications Acetaminophen (Tylenol Tab) 650 mg PO Q4H PRN PRN Reason: Mild Pain or Temp >/=100.5 Albuterol/Ipratropium (Duoneb) 3 ml RESP TX RT Q6H [facility] Last Admin: 06/13/16 07:04 Dose: 3 ml Aspirin () 81 mg PO DAILY [facility] Clonidine HCl (Catapres Tts 1 Patch) 1 patch TRANSDERM Q7DAY [facility] Last Admin: 06/12/16 22:28 Dose: 1 patch Dextrose/Water (D50) 25 gm IV PRN PRN PRN Reason: Hypoglycemia with IV access Docusate Sodium (Colace Cap) 100 mg PO BID [facility] Last Admin: 06/12/16 20:27 Dose: Not Given Enoxaparin Sodium (Lovenox) 30 mg SUBCUT Q24H [facility] Last Admin: 06/12/16 19:23 Dose: 30 mg Fentanyl (Duragesic 25) 1 patch TRANSDERM Q3DAY [facility] Last Admin: 06/12/16 22:27 Dose: 1 patch Glucagon () 1 mg IM PRN PRN PRN Reason: Hypoglycemia w/o IV access Hydralazine HCl (Apresoline Inj) 10 mg IV Q6H PRN PRN Reason: Hypertension Last Admin: 06/13/16 02:29 Dose: 10 mg Sodium Chloride (Ns) 250 mls @ 20 mls/hr IV .[id number] PRN PRN Reason: Blood Transfusion Stop: 06/13/16 13:57 Sodium Chloride (Ns) 250 mls @ 20 mls/hr IV .[id number] PRN PRN Reason: Blood Transfusion Stop: 06/13/16 14:03 Insulin Glargine (Lantus) 40 unit SUBCUT DAILY W/BREAKFAST [facility] Insulin Human Regular (Humulin R) 0 unit SUBCUT Q6HR [facility] PRN Reason: Protocol Last Admin: 06/13/16 00:31 Dose: 6 unit Morphine Sulfate () 2 mg IV Q3H PRN PRN Reason: Pain Severe (8-10) Ondansetron HCl (Zofran Inj) 4 mg IV Q6H PRN PRN Reason: Nausea/Vomiting Last Admin: 06/12/16 20:25 Dose: 4 mg Pantoprazole Sodium (Protonix Tab) 40 mg PO DAILY [facility] Polyethylene Glycol (Miralax) 17 gm PO DAILY [facility] Exam (Progress Note) - Constitutional Vitals: Period Temp Pulse Resp BP Sys/Stevens Pulse Ox Last 24 Hr 97.2 F-99.7 F 69-94 14-28 156-229/51-97 91-100 Exam: General: Appears well developed, well nourished, obese, confused HEENT: Normocephalic, atraumatic Neck: Supple Neck, Midline Trachea, No Bruit, No JVD Cardiac: Reg Rate and Rhythm, No Murmur, no gallop, no rub Lungs: Coarse breath sounds on uncooperative exam Neuro: Less confused today and able to follow commands, and answer questions appropriately Abdomen: Soft, Active Bowel Sounds, No Masses, No Pulsations/Bruits Skin: Normal color, no rash Extremities: No Clubbing, No Cyanosis, No Edema, Normal Upper Extr. Pulses, left upper extremity shows some swelling and tenderness Musculoskeletal: No acute abnormality noted Psychiatric: No anxiety, but is slightly confused still at times Result/EKG - Labs CBC & BMP: 06/13/16 05:15 06/13/16 05:15 Lab Results: I have reviewed the past 24 hour labs Labs: Laboratory Results - last 24 hr 06/12/16 06/12/16 06/13/16 14:05 14:06 05:15 WBC 15.5 H RBC 2.94 L D Hgb 9.4 L D Hct 29.0 L MCV 98.6 MCH 32 MCHC 32.4 RDW 17.5 H Plt Count 123 L MPV 11.2 Neut % (Auto) 80.9 H Lymph % (Auto) 8.0 L Wilson % (Auto) 7.9 Eos % (Auto) 0.1 Baso % (Auto) 0.1 Neut # (Auto) 12.5 H Lymph # (Auto) 1.2 L Wilson # (Auto) 1.2 H Eos # (Auto) 0.0 Baso # (Auto) 0.0 Immature Gran % 3.0 Nucleated RBC % 1.6 Immature Gran # 0.47 Nucleated RBCs # 0.24 Sodium Potassium Chloride Carbon Dioxide Anion Gap BUN Creatinine GFR Calculation BUN/Creatinine Ratio Glucose Calculated Osmolality Calcium Total Bilirubin AST ALT Alkaline Phosphatase Total Creatine Kinase CK-MB (CK-2) CK and CKMB Interp Troponin I 4.220 H D Total Protein Albumin Globulin Albumin/Globulin Ratio Blood Type Cancelled Antibody Screen Cancelled Crossmatch See Detail Blood Bank Comment Cancelled 06/13/16 05:15 WBC RBC Hgb Hct MCV MCH MCHC RDW Plt Count MPV Neut % (Auto) Lymph % (Auto) Wilson % (Auto) Eos % (Auto) Baso % (Auto) Neut # (Auto) Lymph # (Auto) Wilson # (Auto) Eos # (Auto) Baso # (Auto) Immature Gran % Nucleated RBC % Immature Gran # Nucleated RBCs # Sodium 143 Potassium 4.4 Chloride 103 Carbon Dioxide 27 Anion Gap 17.4 H BUN 28 H Creatinine 5.40 H GFR Calculation 9 BUN/Creatinine Ratio 5.00 L Glucose 151 H Calculated Osmolality 293.0 Calcium 8.6 Total Bilirubin 1.00 AST 201 H ALT 61 H Alkaline Phosphatase 162 H Total Creatine Kinase 2640 H CK-MB (CK-2) 12.6 H CK and CKMB Interp 0.5 Troponin I 5.350 H D Total Protein 6.6 Albumin 3.2 L Globulin 3.4 Albumin/Globulin Ratio 0.9 L Blood Type Antibody Screen Crossmatch Blood Bank Comment - Diagnostic Findings Procedure: Chest x-ray: image reviewed by me, report reviewed by me - EKG EKG results: interpreted by me EKG shows: sinus rhythm (Pulse rate in the 80s) Anu Robins Michael, MD, personally performed the services described in this documentation, ascribed by Yumiko Ely RN in my presence, and it is both accurate and complete 930 .
[2016-06-13] MEDS: INSULIN GLARGINE 100 UNIT/ML SUBCUT SCH (10:35)
[2016-06-13] MEDS: ASPIRIN CHEW 81 MG TABLET PO SCH (10:36)
[2016-06-13] MEDS: PANTOPRAZOLE 40 MG TABLET PO SCH (10:37)
[2016-06-13] MEDS: CARVEDILOL 6.25 MG TABLET PO SCH ×2 (10:37→20:08)
[2016-06-13] MEDS: DOCUSATE SODIUM 100 MG CAPSULE PO SCH ×2 (10:37→20:08)
[2016-06-13] MEDS: POLYETHYLENE GLYCOL POWDER 17 GM PACK PO SCH (10:37)
--- NOTE | 2016-06-13 12:07 | Nephrology Progress Note ---
Nephrology - PN: Subj Interval history: Mental status has improved significantly overnight. She is oriented and appropriate. However she does not remember coming to the hospital yesterday. She denies shortness of breath or chest pain. Exam (PN)-Nephrology - Vital Signs Vital signs: Period Temp Pulse Resp BP Sys/Stevens Pulse Ox Last 24 Hr 97.2 F-99.7 F 69-94 14-28 141-229/51-97 91-100 Exam: ENT: Normal Cardiovascular: Regular rate and rhythm. No murmur rub or gallop Lungs: Clear Extremities: No edema - Lab 06/13/16 05:15 06/13/16 05:15 Most recent lab results ABG pH 7.426 (7.35-7.45) 06/12/16 11:18 ABG pCO2 45.6 MM HG (35-48) 06/12/16 11:18 ABG pO2 91.6 MM HG (80-95) 06/12/16 11:18 ABG HCO3 29.1 MMOL/L (20-26) H 06/12/16 11:18 ABG O2 Saturation 97.1 % (95-100) 06/12/16 11:18 Calcium 8.6 MG/DL (8.5-10.1) 06/13/16 05:15 Assessment and Plan (1) Acute encephalopathy Status: Acute Assessment and plan: 56-year-old woman admitted with: * Acute encephalopathy. Much improved. Continue empiric antibiotics pending cultures. * Elevated troponin. Cardiology following * ESRD. Dialysis tomorrow * Anemia. Much improved after transfusion of 3 units RBCs * Recent revision of left upper arm access. Dr. Walker following * Diabetes mellitus * Hypertension. Resume home meds Current Visit: Yes (2) Anemia Problem details: acute blood loss Status: Acute Current Visit: Yes Qualifiers: Anemia type: other cause Other causes of anemia: chronic disease, kidney Qualified Code(s): N18.9 - Chronic kidney disease, unspecified; D63.1 - Anemia in chronic kidney disease (3) Elevated troponin Status: Acute Current Visit: Yes (4) End stage renal disease on dialysis Status: Chronic Current Visit: Yes (5) Diabetes mellitus Status: Chronic Current Visit: Yes Qualifiers: Diabetes mellitus type: type 2 Diabetes mellitus complication detail: with chronic kidney disease Diabetes mellitus truck terminal manager insulin use: with truck terminal manager use Chronic kidney disease stage: on chronic dialysis (6) Hypertension Problem details: Has been well controlled. Status: Chronic Current Visit: No Qualifiers: Hypertension type: essential hypertension Qualified Code(s): I10 - Essential (primary) hypertension
--- NOTE | 2016-06-13 15:53 | Neurology Consult Note ---
History of Present Illness History of present illness: Ms. Travis is a 56 year old female with history of DM, HTN, dylsipidemia, anemia chronic disease, ESRD on hemodialysis per Dr. Orozco, who presented to ER with acute altered mental status and was found to have severe anemia with hemoglobin of about 5. She was admitted to ICU and underwent hemodialysis along with blood transfusion. Troponin elevated. Question she has had blood loss ischemia. She recently has had fistula revision per Dr. Walker, and site has bled at least over night. She was some what confused and disoriented. Her mental status has cleared up completely. She is alert awake and oriented 3. CT of the head is unremarkable for any acute pathology. Home Medications Medication Instructions Recorded Confirmed Type Gabapentin 300 mg PO TID 09/27/14 06/12/16 History Aspirin [Ecotrin] 81 mg PO BEDTIME 09/28/14 06/12/16 History Albuterol/Ipratropium Neb [Duoneb] 3 ml RESP TX RT Q8H 04/10/15 06/12/16 History Pantoprazole Tab [Protonix Tab] 40 mg PO DAILY 09/25/15 06/12/16 History Ferrous Sulfate Tab [Feosol 325 mg PO DAILY 11/03/15 06/12/16 History Original Tab] cloNIDine HCl [Clonidine HCl] 0.2 mg PO BID 11/03/15 06/12/16 History Acetaminophen Tab [Tylenol Tab] 650 mg PO Q4H PRN #0 tablet 11/08/15 06/12/16 Rx hydrALAZINE TAB [Apresoline Tab] 100 mg PO TID #90 tablet 11/08/15 06/12/16 Rx Insulin Aspart [NovoLOG FlexPen] 15 unit SUBCUT BIDAC 12/26/15 06/12/16 History Insulin Detemir [Levemir] 20 units SUBCUT BID W/MEALS 12/26/15 06/12/16 History Multivitamin [Multivitamins] 1 each PO DAILY 06/10/16 06/12/16 History NIFEdipine [Nifedipine ER] 60 mg PO DAILY 06/10/16 06/12/16 History Sevelamer Carbonate Tab [Renvela 2,400 mg PO TID W/MEALS 06/10/16 06/12/16 History Tab] HYDROcodone/ACETAMIN 7.5-325 1 tablet PO Q4H PRN #30 tablet 06/11/16 06/12/16 Rx [[place] 7.5-325] Allergies Allergy/AdvReac Type Severity Reaction Status Date / Time IVP DYE Allergy Unknown Unknown/Unable Uncoded 12/26/15 11:12 to obtain 12 point system: reviewed and no additional remarkable complaints except as stated Medical,Surgical,& Family Hx - Medical History Cardio: History of: CAD, Hypertension, PVD Neurology: History of: Peripheral Neuropathy No history of: Seizures HEENT: History of: HEENT Problems (seasonal allergies) Endocrine: History of: Diabetes Mellitus (IDDM), Diabetes Mellitus (NIDDM), Dyslipidemia Respiratory: History of: Pneumonia Renal: History of: Dialysis ([facility] DR OROZCO), Renal Failure Gastrointestinal: History of: GERD Musculoskeletal: History of: Amputation, Musculoskeletal Problems (intermittent joint pain) Hematology: History of: Anemia (anemia of chronic disease) No history of: Blood Transfusion Reaction Other: No history of: Anesthesia Reactions Comment Only: Miscellaneous Medical Problems (AV GRAFT TO LEFT ARM) - Surgical History Thoracic Surgeries: Patient denies;: Organ Transplant HEENT Surgeries: Surgical HX of: Eye Surgery (cataracts) Reproductive Surgeries: Surgical HX of;: Hysterectomy Orthopedic Surgeries: Surgical HX of;: Orthopedic Surgery (amputation of one toe ) - Family History Family History: Reports;: Family Cancer (grandfather), Family Diabetes (mother) , Family Hypertension (mother) Denies;: Family Anesthesia Reaction, Family Heart Disease, Family Psychiatric Problems, Family Stroke - Social History Smoking Status: Current every day smoker Frequency of Alcohol Use: Unknown Type of Drug Use: Unknown Exam - Constitutional Vitals: Period Temp Pulse Resp BP Sys/Stevens Pulse Ox Last 24 Hr 97.9 F-99.7 F 72-94 14-28 123-229/49-97 91-100 Exam: GENERAL: Patient is in no acute distress. NECK: Neck is supple. There is no JVD. No carotid bruits present. No thyroid masses. CVS: First and second heart sounds are normal. There is no S3 present. Regular rate and rhythm. RESPIRATORY: Lungs are clear to auscultation without any rales or rhonchi. ABDOMEN: Soft and non-tender. Bowel sounds are present. There is no hepatosplenomegaly. EXT: There is no palpable edema. Peripheral pulses are present. Skin: No rashes Central Nervous system: General: Alert, awake and Oriented x 3 Speech: Fluent Comprehension: Intact and normal Facial expressions: Normal Cranial Nerves: CN1/Olfactory: Normal CN II/ Optic: Normal, Visual Mukherjee unreliable CN III, and : RAQUEL & EOMI CN V: Normal & intact CN VII: face is symmetric CNVIII: Normal CN XI/X/XI/XII: Intact and Normal Motor: Bulk and Tone is normal. Strength in the right 4/5 Strength in the left 4/5 Sensory: Decreased for all the modalities of PP, LT and temp sense Reflexes: 1+ and symmetrical Cerebellar function: Normal finger to nose and heel to lozano testing. Toes: Equivocal Gait: Not tested at this time Results - Labs CBC & BMP: 06/13/16 05:15 06/13/16 05:15 Assessment and Plan (1) Delirium Status: Acute Assessment and plan: Likely due to metabolic etiology. No evidence of stroke, TIAs, seizures or epilepsy Continue present management. Okay to go to the floor from neuro standpoint. We will continue watchful observation Current Visit: Yes
[2016-06-13] MEDS: ENOXAPARIN 30 MG/0.3 ML SYRINGE SUBCUT SCH (16:29)
--- NOTE | 2016-06-13 18:29 | Internal Med Progress Note ---
Assessment and Plan (1) Acute encephalopathy Status: Resolved Current Visit: Yes (2) Altered level of consciousness Status: Resolved Current Visit: Yes (3) Anemia Problem details: acute blood loss Status: Chronic Current Visit: Yes Qualifiers: Anemia type: other cause Other causes of anemia: chronic disease, kidney Qualified Code(s): N18.9 - Chronic kidney disease, unspecified; D63.1 - Anemia in chronic kidney disease (4) End stage renal disease on dialysis Status: Chronic Current Visit: Yes (5) Thrombocytopenia Status: Resolved Current Visit: Yes (6) Abdominal pain Status: Resolved Current Visit: Yes Qualifiers: Abdominal location: generalized Qualified Code(s): R10.84 - Generalized abdominal pain (7) Diabetes mellitus Status: Chronic Current Visit: Yes Qualifiers: Diabetes mellitus type: type 2 Diabetes mellitus complication detail: with chronic kidney disease Diabetes mellitus manager long term care insulin use: with manager long term care use Chronic kidney disease stage: on chronic dialysis (8) Essential hypertension Status: Chronic Current Visit: Yes (9) Peripheral neuropathy Status: Chronic Current Visit: Yes Qualifiers: Peripheral neuropathy type: polyneuropathy associated with underlying disease Qualified Code(s): G63 - Polyneuropathy in diseases classified elsewhere Internal Medicine - PN: Subj Interval history: Ms. Travis is a 56 year old female with history of DM, HTN, dylsipidemia, anemia chronic disease, ESRD on hemodialysis per Dr. Garrett, who presented to ER with acute altered mental status and was found to have severe anemia with hemoglobin of about 5. She was admitted to ICU and is currently undergoing hemodialysis along with blood transfusion. Troponin elevated, likely from profound anemia. Concerned she has had blood loss ischemia. She recently has had fistula revision per Dr. Walker, and site has bled at least over night. Today, , doing better and stable. Will move her to Med Surg. Exam (Progress Note) - Constitutional Vitals: Period Temp Pulse Resp BP Sys/Stevens Pulse Ox Last 24 Hr 97.9 F-99.7 F 70-94 14-28 123-229/49-97 91-100 Exam: General appearance: no acute distress - Respiratory Respiratory exam: clear to auscultation - Cardiovascular Cardiovascular exam: Present: regular rate and rhythm - GI/Abdominal GI/Abdominal exam: soft, nontender - Extremities Exam Extremities exam: Absent: edema - Neurological Exam Neurological exam: Present: altered - Psychiatric Psychiatric exam: Present: anxious - Skin Skin exam: Present: warm Vitals reviewed. Results - Labs CBC & BMP: 06/14/16 06:45 06/14/16 05:33
[2016-06-13] MEDS: INSULIN REGULAR 100 UNIT/ML IV SCH (19:04)
--- NOTE | 2016-06-13 21:47 | ECHO Report ---
Travis Valeri Exam Date: 06/13/2016 13:39 Referring Physician: Technologist: Prabha TURCIOS Age: 56 Ht (in): Wt (lb): Gender: F Exam Location: [facility] Echo Indications: AMS, anemia BP: / HR: Rhythm: Sinus Technical Quality: Technically difficult study IMPRESSIONS Technically difficult study Severely decreased left ventricular systolic function, left ventricular ejection fraction is estimated at 25-30%. Mild concentric left ventricular hypertrophy with mild diastolic dysfunction. Moderately increased left atrial diameter. Mildly thickened mitral valve with mild mitral regurgitation. Mild aortic valve sclerosis without stenosis. Mild tricuspid valve regurgitation. MEASUREMENTS (Male / Female) Normal Values 2D ECHO LV Diastolic Diameter PLAX 6.1 cm 4.2 - 5.9 / 3.9 - 5.3 cm LV Systolic Diameter PLAX 5.3 cm LV Fractional Shortening PLAX 13.2 % IVS Diastolic Thickness 1.7 cm 0.6 - 1.0 / 0.6 - 0.9 cm LVPW Diastolic Thickness 1.3 cm 0.6 - 1.0 / 0.6 - 0.9 cm RV Internal Dim ED PLAX 3.3 cm Aortic Root Diameter 2.8 cm LA Systolic Diameter LX 4.4 cm 3.0 - 4.0 / 2.7 - 3.8 cm DOPPLER TR Peak Velocity 242.0 cm/s TR Peak Gradient 23.4 mmHg FINDINGS Left Ventricle Mild concentric left ventricular hypertrophy with mild diastolic dysfunction. Severely decreased left ventricular systolic function, left ventricular ejection fraction is estimated at 25-30%. Right Ventricle Moderately increased right ventricular size. Right Atrium Normal right atrial size. Left Atrium Moderately increased left atrial diameter. Mitral Valve Mildly thickened mitral valve with mild mitral regurgitation. Aortic Valve Mild aortic valve sclerosis without stenosis Tricuspid Valve Morphologically normal tricuspid valve. Mild tricuspid valve regurgitation. Tricuspid regurgitation velocities suggest a PAP of 23.4 mmHg + RAP. Pulmonic Valve Morphologically normal pulmonic valve. Mild pulmonary valve regurgitation. Pericardium No pericardial effusion. Aorta Normal size aortic root and proximal ascending aorta. Juan Brennan (Electronically Signed) Final Date: 13 June 2016 21:45
[2016-06-14] MEDS: ALBUTEROL/IPRATROPIUM 3 ML NEB RESP TX SCH ×4 (00:44→19:34)
[2016-06-14 06:59] LABS: Albumin 2.9 G/DL (3.4-5.0); Bilirubin,Total 0.7 MG/DL (0.2-1.0); Calcium 7.8 MG/DL (8.5-10.1); Magnesium 2.7 MG/DL (1.8-2.4); Osmolality,Calculated 303.8 MOS/KG (273-304); Phosphorous 7.5 MG/DL (2.5-4.9); Potassium 4.7 MMOL/L (3.5-5.1); Total Protein 6.1 G/DL (6.4-8.3)
[2016-06-14 07:22] LABS: Basophils # 0.1 10*3/uL (0.0-0.2); Basophils % 0.5 % (0.0-0.8); Eosinophils # 0.3 10*3/uL (0.0-0.87); Eosinophils % 2.6 % (0.00-10.9); Hemoglobin 8.4 GM/DL (12.0-16.0); Immature Granulocytes % 2.5 %; Immature Granulocytes Absolute 0.27 #; Lymphocytes # 1.6 10*3/uL (1.4-4.0); Lymphocytes % 14.2 % (21.3-54.2); Mean Corpuscular HGB Conc 32.3 GM/DL (32-36); Mean Corpuscular Hemoglobin 32 PG (27-34); Mean Corpuscular Volume 97.7 FL (87-102); Monocytes # 0.7 10*3/uL (0.11-0.8); Monocytes % 6.6 % (1.7-12.7); NRBC # 0.25 10*3/uL; Neutrophils # 8.1 10*3/uL (1.4-7.4); Neutrophils % 73.6 % (38.7-73.9); Platelet Count 139 T/CUMM (130-400); Red Blood Count 2.66 MC/CUMM (3.8-5.5); Red Cell Distribution Width 17.7 % (9.3-17.3)
[2016-06-14] MEDS: INSULIN LISPRO 100 UNIT/ML SUBCUT SCH ×2 (08:23→17:47)
[2016-06-14] MEDS: INSULIN GLARGINE 100 UNIT/ML SUBCUT SCH (08:24)
--- NOTE | 2016-06-14 11:59 | Event Note ---
Pt gone for some testing
[2016-06-14] MEDS: INSULIN REGULAR 100 UNIT/ML SUBCUT SCH ×2 (13:07→22:06)
[2016-06-14] MEDS: POLYETHYLENE GLYCOL POWDER 17 GM PACK PO SCH (13:50)
[2016-06-14] MEDS: CARVEDILOL 6.25 MG TABLET PO SCH ×2 (13:51→22:01)
[2016-06-14] MEDS: ASPIRIN CHEW 81 MG TABLET PO SCH (13:51)
[2016-06-14] MEDS: DOCUSATE SODIUM 100 MG CAPSULE PO SCH ×2 (13:51→21:59)
[2016-06-14] MEDS: PANTOPRAZOLE 40 MG TABLET PO SCH (13:51)
[2016-06-14] MEDS: ENOXAPARIN 30 MG/0.3 ML SYRINGE SUBCUT SCH (13:51)
[2016-06-14] MEDS ORDERED: SKIN HEALING OINT (AQUAPHOR) 50 GM TUBE TOP PRN (14:09)
--- NOTE | 2016-06-14 14:28 | Nephrology Progress Note ---
Nephrology - PN: Subj Interval history: Seen during dialysis. She is alert and oriented 3. She denies shortness of breath or pain. Exam (PN)-Nephrology - Vital Signs Vital signs: Period Temp Pulse Resp BP Sys/Stevens Pulse Ox Last 24 Hr 97.2 F-99.3 F 71-79 12-22 101-137/37-80 93-100 Exam: Gen.: Alert and oriented x3. ENT: Pupils equal round reactive to light. EOMs intact. Mucous membranes moist. Neck: Supple. No JVD or bruit. Cardiovascular: Regular rate and rhythm. No murmur rub or gallop Lungs: Clear Abdomen: Soft. Nontender. Positive bowel sounds. No organomegaly Extremities: Trace edema - Lab 06/14/16 06:45 06/14/16 05:33 Most recent lab results ABG pH 7.426 (7.35-7.45) 06/12/16 11:18 ABG pCO2 45.6 MM HG (35-48) 06/12/16 11:18 ABG pO2 91.6 MM HG (80-95) 06/12/16 11:18 ABG HCO3 29.1 MMOL/L (20-26) H 06/12/16 11:18 ABG O2 Saturation 97.1 % (95-100) 06/12/16 11:18 Calcium 7.8 MG/DL (8.5-10.1) L 06/14/16 05:33 Phosphorus 7.5 MG/DL (2.5-4.9) H 06/14/16 05:33 Magnesium 2.7 MG/DL (1.8-2.4) H 06/14/16 05:33 Assessment and Plan (1) Acute encephalopathy Status: Acute Assessment and plan: 56-year-old woman admitted with: * Acute encephalopathy. Much improved. Continue empiric antibiotics pending cultures. Blood cultures negative thus far * Elevated troponin. Cardiology following * ESRD. Stable during dialysis * Anemia. Much improved after transfusion of 3 units RBCs * Recent revision of left upper arm access. Dr. Walker following * Diabetes mellitus * Hypertension. Now well controlled Current Visit: Yes (2) Anemia Problem details: acute blood loss Status: Acute Current Visit: Yes Qualifiers: Anemia type: other cause Other causes of anemia: chronic disease, kidney Qualified Code(s): N18.9 - Chronic kidney disease, unspecified; D63.1 - Anemia in chronic kidney disease (3) Elevated troponin Status: Acute Current Visit: Yes (4) End stage renal disease on dialysis Status: Chronic Current Visit: Yes (5) Diabetes mellitus Status: Chronic Current Visit: Yes Qualifiers: Diabetes mellitus type: type 2 Diabetes mellitus complication detail: with chronic kidney disease 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 Status: Chronic Current Visit: No Qualifiers: Hypertension type: essential hypertension Qualified Code(s): I10 - Essential (primary) hypertension
--- NOTE | 2016-06-14 15:28 | Cardiology Progress Note ---
Chito Robins April RN, am scribing for, and in the presence of, Pillo Todd MD 15:28. Assessment and Plan (1) Acute encephalopathy Status: Acute Current Visit: Yes (2) Anemia Problem details: acute blood loss Status: Acute Current Visit: Yes Qualifiers: Anemia type: other cause Other causes of anemia: chronic disease, kidney Qualified Code(s): N18.9 - Chronic kidney disease, unspecified; D63.1 - Anemia in chronic kidney disease (3) Elevated troponin Status: Acute Assessment and plan: 1. 56-year-old [place] female with history of hypertension, diabetes, ESRD, reported encephalopathy (converses relatively well currently), with profound anemia with hematocrit 18% range requiring multiple blood transfusions 2. Troponins of all been between 3 and 5; this is likely due to underlying CAD with ischemia exacerbated by severe anemia; she has no symptoms of ACS currently. 3. Echocardiogram shows moderate to severely reduced LV function with EF 20-30% 4. Continue baby aspirin Coreg; add low-dose ARB 5. Would consider stress testing or catheterization at a later time, given her recent severe anemia. Current Visit: Yes (4) Thrombocytopenia Status: Acute Current Visit: Yes (5) Diabetes mellitus Status: Chronic Current Visit: Yes Qualifiers: Diabetes mellitus type: type 2 Diabetes mellitus complication detail: with chronic kidney disease Diabetes mellitus shelter insulin use: with shelter use Chronic kidney disease stage: on chronic dialysis (6) End stage renal disease on dialysis Status: Chronic Current Visit: Yes (7) Hypertension Problem details: Has been well controlled. Status: Chronic Current Visit: Yes Qualifiers: Hypertension type: essential hypertension Qualified Code(s): I10 - Essential (primary) hypertension Cardiology - PN: Subj Interval history: Ms. Travis has a history of end-stage renal disease on dialysis hypertension. Prior to admission she has had some mental changes and was confused. We were asked to see patient because of elevated troponin which got as high as 5.350. Today she is resting in bed in no acute distress. She is alert and oriented today. She denies any chest pain, shortness of breath, palpitations, or dizziness. She dialyzed today.She had 3 units of blood on 06/12/2016, H&H today 8.4 and 26. Exam (Progress Note) - Constitutional Vitals: Period Temp Pulse Resp BP Sys/Stevens Pulse Ox Last 24 Hr 97.2 F-99.3 F 71-79 12-22 101-137/37-80 93-100 General appearance: normal weight, no acute distress Exam: General: Appears well developed, well nourished, obese HEENT: Normocephalic, atraumatic Neck: Supple Neck, Midline Trachea, No Bruit, No JVD Cardiac: Reg Rate and Rhythm, No Murmur, no gallop, no rub Lungs: Coarse breath sounds Neuro: Alert and oriented Abdomen: Soft, Active Bowel Sounds, No Masses, No Pulsations/Bruits Skin: Normal color, no rash Extremities: No Clubbing, No Cyanosis, No Edema, Normal Upper Extr. Pulses, left upper extremity shows some swelling and tenderness Musculoskeletal: No acute abnormality noted Psychiatric: No anxiety - Head Head exam: Present: normal inspection, normocephalic, atraumatic - Neck Neck exam: Present: normal inspection - Cardiovascular Cardiovascular exam: Absent: diastolic murmur, irregular rhythm, rubs - GI/Abdominal GI/Abdominal exam: Present: soft. Absent: tenderness - Extremities Exam Extremities exam: Absent: edema Result/EKG - Labs CBC & BMP: 06/14/16 06:45 06/14/16 05:33 Lab Results: I have reviewed the past 24 hour labs Labs: Laboratory Results - last 24 hr 06/13/16 06/13/16 06/13/16 18:19 23:08 23:53 WBC RBC Hgb Hct MCV MCH MCHC RDW Plt Count MPV Neut % (Auto) Lymph % (Auto) [place] % (Auto) Eos % (Auto) Baso % (Auto) Neut # (Auto) Lymph # (Auto) [place] # (Auto) Eos # (Auto) Baso # (Auto) Immature Gran % Nucleated RBC % Immature Gran # Nucleated RBCs # Sodium Potassium Chloride Carbon Dioxide Anion Gap BUN Creatinine GFR Calculation BUN/Creatinine Ratio Glucose POC Glucose 234 H 49 L* 75 Calculated Osmolality Calcium Phosphorus Magnesium Total Bilirubin AST ALT Alkaline Phosphatase Total Protein Albumin Globulin Albumin/Globulin Ratio 06/14/16 06/14/16 06/14/16 01:19 05:33 06:45 WBC 11.0 RBC 2.66 L Hgb 8.4 L Hct 26.0 L MCV 97.7 MCH 32 MCHC 32.3 RDW 17.7 H Plt Count 139 MPV 11.0 Neut % (Auto) 73.6 Lymph % (Auto) 14.2 L [place] % (Auto) 6.6 Eos % (Auto) 2.6 Baso % (Auto) 0.5 Neut # (Auto) 8.1 H Lymph # (Auto) 1.6 [place] # (Auto) 0.7 Eos # (Auto) 0.3 Baso # (Auto) 0.1 Immature Gran % 2.5 Nucleated RBC % 2.3 Immature Gran # 0.27 Nucleated RBCs # 0.25 Sodium 144 Potassium 4.7 Chloride 102 Carbon Dioxide 25 Anion Gap 21.7 H BUN 51 H Creatinine 7.70 H GFR Calculation 6 BUN/Creatinine Ratio 6.00 Glucose 168 H POC Glucose 118 H Calculated Osmolality 303.8 Calcium 7.8 L Phosphorus 7.5 H Magnesium 2.7 H Total Bilirubin 0.70 AST 123 H ALT 60 H Alkaline Phosphatase 202 H Total Protein 6.1 L Albumin 2.9 L Globulin 3.2 Albumin/Globulin Ratio 0.9 L 06/14/16 07:02 WBC RBC Hgb Hct MCV MCH MCHC RDW Plt Count MPV Neut % (Auto) Lymph % (Auto) [place] % (Auto) Eos % (Auto) Baso % (Auto) Neut # (Auto) Lymph # (Auto) [place] # (Auto) Eos # (Auto) Baso # (Auto) Immature Gran % Nucleated RBC % Immature Gran # Nucleated RBCs # Sodium Potassium Chloride Carbon Dioxide Anion Gap BUN Creatinine GFR Calculation BUN/Creatinine Ratio Glucose POC Glucose 177 H Calculated Osmolality Calcium Phosphorus Magnesium Total Bilirubin AST ALT Alkaline Phosphatase Total Protein Albumin Globulin Albumin/Globulin Ratio Perez Robins Randall Scott, MD, personally performed the services described in this documentation, ascribed by Malu Dale RN in my presence, and it is both accurate and complete [id number] .
[2016-06-14] MEDS: ATORVASTATIN 40 MG TABLET PO SCH (17:14)
[2016-06-14] MEDS: ACETAMINOPHEN 325 MG TABLET PO PRN (21:59)
[2016-06-14] MEDS: VALSARTAN 80 MG TABLET PO SCH (22:02)
--- NOTE | 2016-06-14 22:03 | Internal Med Progress Note ---
Assessment and Plan (1) Acute encephalopathy Status: Resolved Current Visit: Yes (2) Altered level of consciousness Status: Resolved Current Visit: Yes (3) Anemia Problem details: acute blood loss Status: Chronic Current Visit: Yes Qualifiers: Anemia type: other cause Other causes of anemia: chronic disease, kidney Qualified Code(s): N18.9 - Chronic kidney disease, unspecified; D63.1 - Anemia in chronic kidney disease (4) Elevated troponin Status: Acute Current Visit: Yes (5) End stage renal disease on dialysis Status: Chronic Current Visit: Yes (6) Thrombocytopenia Status: Resolved Current Visit: Yes (7) Abdominal pain Status: Resolved Current Visit: Yes Qualifiers: Abdominal location: generalized Qualified Code(s): R10.84 - Generalized abdominal pain (8) Diabetes mellitus Status: Chronic Current Visit: Yes Qualifiers: Diabetes mellitus type: type 2 Diabetes mellitus complication detail: with chronic kidney disease Diabetes mellitus half-way insulin use: with half-way use Chronic kidney disease stage: on chronic dialysis (9) Essential hypertension Status: Chronic Current Visit: Yes (10) Peripheral neuropathy Status: Chronic Current Visit: Yes Qualifiers: Peripheral neuropathy type: polyneuropathy associated with underlying disease Qualified Code(s): G63 - Polyneuropathy in diseases classified elsewhere Internal Medicine - PN: Subj Interval history: Ms. Travis is a 56 year old female with history of DM, HTN, dylsipidemia, anemia chronic disease, ESRD on hemodialysis per Dr. Garrett, who presented to ER with acute altered mental status and was found to have severe anemia with hemoglobin of about 5. She was admitted to ICU and is currently undergoing hemodialysis along with blood transfusion. Troponin elevated, likely from profound anemia. Concerned she has had blood loss ischemia. She recently has had fistula revision per Dr. Walker, and site has bled at least over night. Today, , doing better and stable. Will move her to Med Surg. Friday, anemia is stable after blood transfusion. Dialysis today. She will be discharged to home tomorrow. Exam (Progress Note) - Constitutional Vitals: Period Temp Pulse Resp BP Sys/Stevens Pulse Ox Last 24 Hr 97.2 F-99.3 F 71-82 17-20 128-144/54-80 93-99 Exam: General appearance: no acute distress - Respiratory Respiratory exam: clear to auscultation - Cardiovascular Cardiovascular exam: Present: regular rate and rhythm - GI/Abdominal GI/Abdominal exam: soft, nontender - Extremities Exam Extremities exam: Absent: edema - Neurological Exam Neurological exam: Present: altered - Psychiatric Psychiatric exam: Present: anxious - Skin Skin exam: Present: warm Vitals reviewed. Results - Labs CBC & BMP: 06/14/16 06:45 06/14/16 05:33
--- NOTE | 2016-06-14 22:03 | Discharge Summary ---
Hospital Course - Hospital Course Hospital Course: Ms. Travis is a 56 year old female with history of DM, HTN, dylsipidemia, anemia chronic disease, ESRD on hemodialysis per Dr. Garrett, who presented to ER with acute altered mental status and was found to have severe anemia with hemoglobin of about 5. She was admitted to ICU and is currently undergoing hemodialysis along with blood transfusion. Troponin elevated, likely from profound anemia. Concerned she has had blood loss ischemia. She recently has had fistula revision per Dr. Spencer, and site has bled at least over night. She is feeling better status post blood transfusion and hemodialysis. Will discharge to home. She has been seen by Dr. Spencer for fistula revision, and the site has now been stabilized. Diagnosis - Discharge Diagnosis (1) Acute encephalopathy Status: Resolved (2) Altered level of consciousness Status: Resolved (3) Anemia Status: Chronic (4) End stage renal disease on dialysis Status: Chronic (5) Thrombocytopenia Status: Resolved (6) Abdominal pain Status: Resolved (7) Diabetes mellitus Status: Chronic (8) Essential hypertension Status: Chronic (9) Peripheral neuropathy Status: Chronic Discharge Plan - Discharge Data Disposition: Disch To Home/Self Care Condition at Discharge: Stable Discharge Diet: low fat, low cholesterol Activity: increase activity as tolerated - Discharge Medications New Docusate Sodium Cap [Colace Cap] 100 mg PO BID capsule Valsartan [Diovan] 40 mg PO BID #60 tablet Aspirin Chew Tab 81 mg PO DAILY tablet Atorvastatin [Lipitor] 40 mg PO DAILY tablet Carvedilol [Coreg] 6.25 mg PO BID #60 tablet Insulin Lispro [HumaLOG] 20 unit SUBCUT BIDAC #60 unit NIFEdipine XL TAB [Procardia Xl] 60 mg PO DAILY #30 tablet Polyethylene Glycol Powder [Miralax] 17 gm PO DAILY Skin Healing Oint (Aquaphor) [Aquaphor] 1 applic TOP PRN PRN #0 applic PRN Reason: Dry Skin hydrALAZINE TAB [Apresoline Tab] 100 mg PO TID tablet Continue Aspirin [Ecotrin] 81 mg PO BEDTIME Albuterol/Ipratropium Neb [Duoneb] 3 ml RESP TX RT Q8H Pantoprazole Tab [Protonix Tab] 40 mg PO DAILY Ferrous Sulfate Tab [Feosol Original Tab] 325 mg PO DAILY Acetaminophen Tab [Tylenol Tab] 650 mg PO Q4H PRN #0 tablet PRN Reason: Mild Pain or Temp >/=100.5 hydrALAZINE TAB [Apresoline Tab] 100 mg PO TID #90 tablet Sevelamer Carbonate Tab [Renvela Tab] 2,400 mg PO TID W/MEALS Multivitamin [Multivitamins] 1 each PO DAILY NIFEdipine [Nifedipine ER] 60 mg PO DAILY HYDROcodone/ACETAMIN 7.5-325 [[place] 7.5-325] 1 tablet PO Q4H PRN #30 tablet PRN Reason: Pain Moderate (4-7) Changed Gabapentin 300 mg PO BEDTIME #30 Insulin Detemir [Levemir] 40 units SUBCUT BID W/MEALS #5 Discontinued cloNIDine HCl [Clonidine HCl] 0.2 mg PO BID Insulin Aspart [NovoLOG FlexPen] 15 unit SUBCUT BIDAC - Follow Up or Referral Follow Up: Kristi Palma DO [Physician] - - Forms/Instructions Additional Discharge Instructions: Follow up with Dr. Tanya Palma in clinic within 2 weeks. She will see Dr. Garrett in outpatient dialysis unit. Exam - Constitutional Vitals: Period Temp Pulse Resp BP Sys/Stevens Pulse Ox Last 24 Hr 97.2 F-99.3 F 71-82 17-20 128-144/54-80 93-99 Exam: General appearance: no acute distress - Respiratory Respiratory exam: clear to auscultation - Cardiovascular Cardiovascular exam: Present: regular rate and rhythm - GI/Abdominal GI/Abdominal exam: soft, nontender - Extremities Exam Extremities exam: Absent: edema - Neurological Exam Neurological exam: Present: altered - Psychiatric Psychiatric exam: Present: normal mood - Skin Skin exam: Present: warm Vitals reviewed. Discharge Results Labs on day of discharge: Labs from last 24 hours 06/14/16 06/14/16 06/14/16 17:46 07:02 06:45 WBC 11.0 RBC 2.66 L Hgb 8.4 L Hct 26.0 L MCV 97.7 MCH 32 MCHC 32.3 RDW 17.7 H Plt Count 139 MPV 11.0 Neut % (Auto) 73.6 Lymph % (Auto) 14.2 L [place] % (Auto) 6.6 Eos % (Auto) 2.6 Baso % (Auto) 0.5 Neut # (Auto) 8.1 H Lymph # (Auto) 1.6 Imperial # (Auto) 0.7 Eos # (Auto) 0.3 Baso # (Auto) 0.1 Immature Gran % 2.5 Nucleated RBC % 2.3 Immature Gran # 0.27 Nucleated RBCs # 0.25 Sodium Potassium Chloride Carbon Dioxide Anion Gap BUN Creatinine GFR Calculation BUN/Creatinine Ratio Glucose POC Glucose 198 H 177 H Calculated Osmolality Calcium Phosphorus Magnesium Total Bilirubin AST ALT Alkaline Phosphatase Total Protein Albumin Globulin Albumin/Globulin Ratio 06/14/16 06/14/16 06/13/16 05:33 01:19 23:53 WBC RBC Hgb Hct MCV MCH MCHC RDW Plt Count MPV Neut % (Auto) Lymph % (Auto) Imperial % (Auto) Eos % (Auto) Baso % (Auto) Neut # (Auto) Lymph # (Auto) Imperial # (Auto) Eos # (Auto) Baso # (Auto) Immature Gran % Nucleated RBC % Immature Gran # Nucleated RBCs # Sodium 144 Potassium 4.7 Chloride 102 Carbon Dioxide 25 Anion Gap 21.7 H BUN 51 H Creatinine 7.70 H GFR Calculation 6 BUN/Creatinine Ratio 6.00 Glucose 168 H POC Glucose 118 H 75 Calculated Osmolality 303.8 Calcium 7.8 L Phosphorus 7.5 H Magnesium 2.7 H Total Bilirubin 0.70 AST 123 H ALT 60 H Alkaline Phosphatase 202 H Total Protein 6.1 L Albumin 2.9 L Globulin 3.2 Albumin/Globulin Ratio 0.9 L 06/13/16 23:08 WBC RBC Hgb Hct MCV MCH MCHC RDW Plt Count MPV Neut % (Auto) Lymph % (Auto) Imperial % (Auto) Eos % (Auto) Baso % (Auto) Neut # (Auto) Lymph # (Auto) Imperial # (Auto) Eos # (Auto) Baso # (Auto) Immature Gran % Nucleated RBC % Immature Gran # Nucleated RBCs # Sodium Potassium Chloride Carbon Dioxide Anion Gap BUN Creatinine GFR Calculation BUN/Creatinine Ratio Glucose POC Glucose 49 L* Calculated Osmolality Calcium Phosphorus Magnesium Total Bilirubin AST ALT Alkaline Phosphatase Total Protein Albumin Globulin Albumin/Globulin Ratio DS: Provider Date of admission: 06/12/16 12:38 Primary care physician: Shahzad Thomas MD Attending physician on admission: Kristi Palma DO Consults: 06/12/16 13:41 Consult to Case Mgmt/Social Srvs [CONS] Routine Reason for Case Mgmt/Social Srvs: Discharge Planning 06/12/16 13:47 Consult to Pharmacy [CONS] Routine Reason for Pharmacy Consult: Adjust Meds Renal Funct 06/12/16 14:13 Consult to Physician [CONS] Routine Comment: Consulting Provider: Pillo Garrett Consulting Provider Notified: Yes When should Consulting Provider be notified: Now Consult to Specialist Group: Nephrology Person Notified: ED Date Notified: 06/12/16 Time Notified: 14:25 Consult Notification Comment: ALREADY SEEN PT THIS AM 06/12/16 16:24 Consult to Physician [CONS] Routine Comment: Consulting Provider: Juan Brennan Consulting Provider Notified: Yes When should Consulting Provider be notified: Now Person Notified: Charlene Date Notified: 06/12/16 Time Notified: 16:34 06/12/16 16:25 Consult to Physician [CONS] Routine Comment: ams Consulting Provider: José Antonio Rankin Consulting Provider Notified: Yes When should Consulting Provider be notified: Now Person Notified: Message left Dr. Rankin's office machine Date Notified: 06/12/16 Time Notified: 16:30 06/12/16 21:44 Consult to Physician [CONS] Routine Comment: re-assess revision; tenderness to forearm Consulting Provider: Ankur Spencer Consulting Provider Notified: Yes Consult to Specialist Group: Surgery Person Notified: REID Date Notified: 06/13/16 Time Notified: 08:55 Consult Notification Comment: DR. SPENCER ALREADY SEEN PT THIS AM Discharging clinician: Kristi Palma DO Expected date of discharge: 06/15/16
[2016-06-15] MEDS ORDERED: INSULIN LISPRO 100 UNIT/ML SUBCUT SCH (00:01)
[2016-06-15] MEDS: ALBUTEROL/IPRATROPIUM 3 ML NEB RESP TX SCH ×2 (00:19→07:43)
[2016-06-15 06:26] LABS: Basophils # 0.1 10*3/uL (0.0-0.2); Basophils % 0.5 % (0.0-0.8); Eosinophils # 0.3 10*3/uL (0.0-0.87); Eosinophils % 3.1 % (0.00-10.9); Hematocrit 29.9 VOL% (35.7-47.0); Hemoglobin 9.9 GM/DL (12.0-16.0); Immature Granulocytes % 2.3 %; Immature Granulocytes Absolute 0.24 #; Lymphocytes # 1.3 10*3/uL (1.4-4.0); Lymphocytes % 12.2 % (21.3-54.2); Mean Corpuscular HGB Conc 33.1 GM/DL (32-36); Mean Corpuscular Hemoglobin 32 PG (27-34); Mean Corpuscular Volume 96.8 FL (87-102); Mean Platelet Volume 10.9 FL (9.6-12.0); Monocytes # 0.8 10*3/uL (0.11-0.8); Monocytes % 7.4 % (1.7-12.7); NRBC # 0.28 10*3/uL; Neutrophils # 7.6 10*3/uL (1.4-7.4); Neutrophils % 74.5 % (38.7-73.9); Platelet Count 165 T/CUMM (130-400); Red Blood Count 3.09 MC/CUMM (3.8-5.5); Red Cell Distribution Width 17.2 % (9.3-17.3); White Blood Count 10.2 T/CUMM (4-12)
[2016-06-15] MEDS: ACETAMINOPHEN 325 MG TABLET PO PRN (06:27)
[2016-06-15 07:09] LABS: Calcium 8.3 MG/DL (8.5-10.1); Osmolality,Calculated 286.5 MOS/KG (273-304); Potassium 4.8 MMOL/L (3.5-5.1)
[2016-06-15] MEDS: INSULIN GLARGINE 100 UNIT/ML SUBCUT SCH (07:10)
[2016-06-15] MEDS: ASPIRIN CHEW 81 MG TABLET PO SCH (08:41)
[2016-06-15] MEDS: CARVEDILOL 6.25 MG TABLET PO SCH (08:41)
[2016-06-15] MEDS: PANTOPRAZOLE 40 MG TABLET PO SCH (08:41)
[2016-06-15] MEDS: VALSARTAN 80 MG TABLET PO SCH (08:41)
[2016-06-15] MEDS: DOCUSATE SODIUM 100 MG CAPSULE PO SCH (08:41)
[2016-06-15] MEDS: ATORVASTATIN 40 MG TABLET PO SCH (08:41)
[2016-06-15] MEDS: POLYETHYLENE GLYCOL POWDER 17 GM PACK PO SCH (08:42)
[2016-06-15] MEDS: fentaNYL 25 MCG/HR PATCH TRANSDERM SCH (08:42)
--- NOTE | 2016-06-15 09:26 | Nephrology Progress Note ---
Nephrology - PN: Subj Interval history: Patient denies shortness of breath. Review of systems GI she denies nausea vomiting Physical exam general patient is in no acute distress Assessment/plan 1. End-stage renal disease-we will continue hemodialysis support 2. Anemia 3. Confusion this is improved 4. Diabetes mellitus this is controlled 5. Hypertension this is controlled Exam (PN)-Nephrology - Vital Signs Vital signs: Period Temp Pulse Resp BP Sys/Stevens Pulse Ox Last 24 Hr 98.3 F-98.8 F 72-82 16-20 102-147/48-54 92-100 - Lab 06/15/16 06:03 06/15/16 06:03 Most recent lab results ABG pH 7.426 (7.35-7.45) 06/12/16 11:18 ABG pCO2 45.6 MM HG (35-48) 06/12/16 11:18 ABG pO2 91.6 MM HG (80-95) 06/12/16 11:18 ABG HCO3 29.1 MMOL/L (20-26) H 06/12/16 11:18 ABG O2 Saturation 97.1 % (95-100) 06/12/16 11:18 Calcium 8.3 MG/DL (8.5-10.1) L 06/15/16 06:03 Phosphorus 7.5 MG/DL (2.5-4.9) H 06/14/16 05:33 Magnesium 2.7 MG/DL (1.8-2.4) H 06/14/16 05:33 Specialty Discharge - Follow Up or Referrals Follow up with: Kristi Palma DO [Physician] - 2 Weeks
[2016-06-15 10:16] VITALS: BP 117/72
== END 2016-06-15 11:11 | disposition home or self-care (01) | DRG 981 ==
LOC: EDUNIT# → EDBD → N.ED 10:35 → N.EDINP 12:38 → N.ICU 13:11 → N.5E 06-13 20:59
PROVIDERS: ADMIT Internal Medicine; ATTEND Internal Medicine

== ENCOUNTER 2017-03-21 23:40 | Inpatient (IN) ==
[2017-03-22] MEDS ORDERED: ACETAMINOPHEN 325 MG TABLET PO PRN (01:53)
[2017-03-22] MEDS ORDERED: DEXTROSE 50% 25 GM/50 ML VIAL IV PRN (01:53)
[2017-03-22] MEDS ORDERED: GLUCAGON 1 MG VIAL IM PRN (01:53)
[2017-03-22] MEDS ORDERED: ONDANSETRON 4 MG/2 ML VIAL IV PRN (01:53)
[2017-03-22] MEDS ORDERED: ALBUTEROL/IPRATROPIUM 3 ML NEB RESP TX PRN (02:02)
[2017-03-22 03:36] LABS: Basophils # 0.1 10*3/uL (0.0-0.2); Basophils % 1.1 % (0.0-0.8); Eosinophils # 0.4 10*3/uL (0.0-0.87); Eosinophils % 5.3 % (0.00-10.9); Hemoglobin 9.8 GM/DL (12.0-16.0); Immature Granulocytes % 0.7 %; Immature Granulocytes Absolute 0.05 #; Lymphocytes # 1.3 10*3/uL (1.4-4.0); Lymphocytes % 17.3 % (21.3-54.2); Mean Corpuscular HGB Conc 32.7 GM/DL (32-36); Mean Corpuscular Hemoglobin 33 PG (27-34); Mean Platelet Volume 11.1 FL (9.6-12.0); Monocytes # 0.6 10*3/uL (0.11-0.8); Monocytes % 7.6 % (1.7-12.7); Neutrophils # 5.1 10*3/uL (1.4-7.4); Platelet Count 141 T/CUMM (130-400); Red Blood Count 2.97 MC/CUMM (3.8-5.5); Red Cell Distribution Width 16.4 % (9.3-17.3); White Blood Count 7.5 T/CUMM (4-12)
[2017-03-22] MEDS: cefTRIAXone 1,000 MG in SYRINGE 1 EACH IV SCH (03:51)
[2017-03-22] MEDS: AZITHROMYCIN INJ 500 MG in SODIUM CHLORIDE 0.9% 250 ML IV SCH (03:58)
[2017-03-22 03:59] LABS: Bilirubin,Total 1.1 MG/DL (0.2-1.0); Calcium 8.3 MG/DL (8.5-10.1); Magnesium 2.2 MG/DL (1.8-2.4); Osmolality,Calculated 283.5 MOS/KG (273-304); Potassium 3.6 MMOL/L (3.5-5.1); Total Protein 6.8 G/DL (6.4-8.3)
[2017-03-22] MEDS: ALBUTEROL/IPRATROPIUM 3 ML NEB RESP TX SCH ×3 (07:10→20:14)
[2017-03-22] MEDS: INSULIN LISPRO 100 UNIT/ML SUBCUT SCH ×6 (08:49→17:07)
[2017-03-22] MEDS: SEVELAMER CARBONATE 800 MG TABLET PO SCH ×3 (08:50→17:07)
[2017-03-22] MEDS: INSULIN GLARGINE 100 UNIT/ML SUBCUT SCH ×2 (08:50→17:07)
[2017-03-22] MEDS: cloNIDine 0.1 MG TABLET PO SCH ×2 (08:52→20:57)
[2017-03-22] MEDS: VALSARTAN 80 MG TABLET PO SCH ×2 (08:52→20:57)
[2017-03-22] MEDS: GABAPENTIN 300 MG CAPSULE PO SCH ×3 (08:52→20:57)
[2017-03-22] MEDS ORDERED: CARVEDILOL 6.25 MG TABLET PO SCH (09:00)
[2017-03-22] MEDS ORDERED: MULTIVITAMIN (CENTRUM) TABLET PO SCH (09:00)
[2017-03-22] MEDS ORDERED: PANTOPRAZOLE 40 MG TABLET PO SCH (09:00)
[2017-03-22] MEDS ORDERED: CARVEDILOL 12.5 MG TABLET PO SCH (17:22)
[2017-03-23] MEDS: cefTRIAXone 1,000 MG in SYRINGE 1 EACH IV SCH (02:08)
[2017-03-23] MEDS: AZITHROMYCIN INJ 500 MG in SODIUM CHLORIDE 0.9% 250 ML IV SCH (02:23)
[2017-03-23] MEDS: INSULIN LISPRO 100 UNIT/ML SUBCUT SCH (02:30)
[2017-03-23] MEDS: ALBUTEROL/IPRATROPIUM 3 ML NEB RESP TX SCH (02:35)
[2017-03-23 05:19] VITALS: BP 122/58
[2017-03-24] MEDS ORDERED: AZITHROMYCIN 250 MG TABLET PO SCH (09:00)
== END 2017-03-23 05:15 | disposition home or self-care (01) | DRG 193 ==
LOC: N.3WOUT 23:40 → N.2E 23:40 → UNDODEPREF 03-26 15:24
PROVIDERS: ADMIT Internal Medicine; ATTEND Internal Medicine

== ENCOUNTER 2017-10-12 18:48 | Inpatient (IN) ==
[2017-10-12 19:57] LABS: Basophils # 0.1 10*3/uL (0.0-0.2); Eosinophils # 0.4 10*3/uL (0.0-0.87); Eosinophils % 4.3 % (0.00-10.9); Hematocrit 37.9 VOL% (35.7-47.0); Hemoglobin 12.4 GM/DL (12.0-16.0); Immature Granulocytes % 0.6 %; Immature Granulocytes Absolute 0.05 #; Lymphocytes # 1.8 10*3/uL (1.4-4.0); Lymphocytes % 22.1 % (21.3-54.2); Mean Corpuscular HGB Conc 32.7 GM/DL (32-36); Mean Corpuscular Hemoglobin 32 PG (27-34); Mean Corpuscular Volume 98.2 FL (87-102); Mean Platelet Volume 10.6 FL (9.6-12.0); Monocytes # 0.6 10*3/uL (0.11-0.8); Monocytes % 7.2 % (1.7-12.7); Neutrophils # 5.3 10*3/uL (1.4-7.4); Neutrophils % 64.8 % (38.7-73.9); Platelet Count 197 T/CUMM (130-400); Red Blood Count 3.86 MC/CUMM (3.8-5.5); Red Cell Distribution Width 14.2 % (9.3-17.3); White Blood Count 8.2 T/CUMM (4-12)
[2017-10-12 20:06] LABS: PT Patient Result 10.1 SECS
[2017-10-12 20:25] LABS: Bilirubin,Total 0.5 MG/DL (0.2-1.0); Osmolality,Calculated 296.2 MOS/KG (273-304); Thyroid Stimulating Hormone 2.69 uIU/ml (0.358-3.74); Total Protein 8.1 G/DL (6.4-8.3); Troponin I Only 0.033 NG/ML (0.00-0.045)
[2017-10-12 20:31] LABS: Potassium 6.6 MMOL/L (3.5-5.1)
[2017-10-13 04:23] LABS: Basophils # 0.1 10*3/uL (0.0-0.2); Basophils % 1.1 % (0.0-0.8); Eosinophils # 0.4 10*3/uL (0.0-0.87); Eosinophils % 5.3 % (0.00-10.9); Hematocrit 35.1 VOL% (35.7-47.0); Hemoglobin 11.1 GM/DL (12.0-16.0); Immature Granulocytes % 0.7 %; Immature Granulocytes Absolute 0.05 #; Lymphocytes # 1.4 10*3/uL (1.4-4.0); Lymphocytes % 18.5 % (21.3-54.2); Mean Corpuscular HGB Conc 31.6 GM/DL (32-36); Mean Corpuscular Hemoglobin 32 PG (27-34); Mean Corpuscular Volume 99.7 FL (87-102); Mean Platelet Volume 10.7 FL (9.6-12.0); Monocytes # 0.6 10*3/uL (0.11-0.8); Monocytes % 7.4 % (1.7-12.7); Platelet Count 219 T/CUMM (130-400); Red Blood Count 3.52 MC/CUMM (3.8-5.5); Red Cell Distribution Width 14.3 % (9.3-17.3); White Blood Count 7.5 T/CUMM (4-12)
[2017-10-13 04:31] LABS: Bilirubin,Total 0.9 MG/DL (0.2-1.0); Calcium 9.2 MG/DL (8.5-10.1); Osmolality,Calculated 284.7 MOS/KG (273-304); Potassium 3.8 MMOL/L (3.5-5.1)
[2017-10-14 11:59] VITALS: BP 120/40
== END 2017-10-14 13:32 | disposition home or self-care (01) | DRG 640 ==
LOC: EDUNIT# → EDBD → N.ED 18:48 → N.EDINP 19:51 → N.TELES 20:50
PROVIDERS: ADMIT Internal Medicine; ATTEND Internal Medicine

== ENCOUNTER 2019-01-11 13:06 | Inpatient (IN) ==
[2019-01-11] MEDS ORDERED: DEXTROSE 50% 25 GM/50 ML VIAL IV PRN (15:55)
[2019-01-11] MEDS ORDERED: ACETAMINOPHEN 325 MG TABLET PO PRN (15:55)
[2019-01-11] MEDS ORDERED: ONDANSETRON 4 MG/2 ML VIAL IV PRN (15:55)
[2019-01-11] MEDS ORDERED: PROMETHAZINE 25 MG TABLET PO PRN (15:55)
[2019-01-11] MEDS ORDERED: GLUCAGON 1 MG VIAL IM PRN (15:55)
[2019-01-11] MEDS ORDERED: BICILLIN LA 1,200,000 UNIT/2 ML SYRINGE IM ONE (15:58)
[2019-01-11] MEDS ORDERED: LEVOFLOXACIN INJ 750 MG in PREMIX 1 EACH IV SCH (16:00)
[2019-01-11] MEDS ORDERED: LEVOFLOXACIN INJ 750 MG in PREMIX 1 EACH IV ONE (16:30)
[2019-01-11 17:09] LABS: Basophils # 0.1 10*3/uL (0.0-0.2); Basophils % 0.4 % (0.0-0.8); Eosinophils # 0.1 10*3/uL (0.0-0.87); Eosinophils % 0.5 % (0.00-10.9); Hematocrit 29.7 VOL% (35.7-47.0); Hemoglobin 9.3 GM/DL (12.0-16.0); Immature Granulocytes % 0.5 %; Immature Granulocytes Absolute 0.07 #; Lymphocytes # 1.5 10*3/uL (1.4-4.0); Lymphocytes % 10.1 % (21.3-54.2); Mean Corpuscular HGB Conc 31.3 GM/DL (32-36); Mean Corpuscular Volume 101.4 FL (87-102); Mean Platelet Volume 10.6 FL (9.6-12.0); Monocytes % 4.7 % (1.7-12.7); NRBC # 0.02 10*3/uL; Neutrophils % 83.8 % (38.7-73.9); Platelet Count 194 T/CUMM (130-400); Red Blood Count 2.93 MC/CUMM (3.8-5.5); Red Cell Distribution Width 14.3 % (9.3-17.3); White Blood Count 14.6 T/CUMM (4-12)
[2019-01-11] MEDS: INSULIN REGULAR 100 UNIT/ML SUBCUT SCH ×2 (17:39→22:30)
[2019-01-11 17:43] LABS: Albumin 2.9 G/DL (3.4-5.0); Bilirubin,Total 0.6 MG/DL (0.2-1.0); Calcium 8.8 MG/DL (8.5-10.1); Osmolality,Calculated 282.8 MOS/KG (273-304); Thyroid Stimulating Hormone 1.28 uIU/ml (0.358-3.74); Total Protein 7.1 G/DL (6.4-8.3)
[2019-01-11] MEDS: PANTOPRAZOLE 40 MG TABLET PO SCH (18:04)
[2019-01-11] MEDS ORDERED: SEVELAMER CARBONATE 800 MG TABLET PO SCH (18:30)
[2019-01-11] MEDS: ALBUTEROL/IPRATROPIUM 3 ML NEB RESP TX SCH (18:49)
[2019-01-11] MEDS: DORNASE ALFA 2.5 MG/2.5 ML VIAL RESP TX SCH (18:54)
[2019-01-11] MEDS ORDERED: VANCOMYCIN INJ 1,000 MG in SODIUM CHLORIDE 0.9% 250 ML IV ONE (21:00)
[2019-01-11] MEDS: GABAPENTIN 100 MG CAPSULE PO SCH (22:28)
[2019-01-11] MEDS: carvediloL 6.25 MG TABLET PO SCH (22:28)
[2019-01-11] MEDS: INSULIN GLARGINE 100 UNIT/ML SUBCUT SCH (22:29)
[2019-01-11] MEDS: PIPERACILLIN/TAZOBACTAM 3,375 MG in SODIUM CHLORIDE 0.9% 100 ML IV SCH (23:17)
[2019-01-12] MEDS: ALBUTEROL/IPRATROPIUM 3 ML NEB RESP TX SCH ×5 (00:06→19:33)
[2019-01-12 04:39] LABS: Basophils # 0.1 10*3/uL (0.0-0.2); Basophils % 0.7 % (0.0-0.8); Eosinophils # 0.1 10*3/uL (0.0-0.87); Eosinophils % 1.6 % (0.00-10.9); Hematocrit 29.7 VOL% (35.7-47.0); Hemoglobin 9.6 GM/DL (12.0-16.0); Immature Granulocytes % 0.7 %; Immature Granulocytes Absolute 0.06 #; Lymphocytes % 11.7 % (21.3-54.2); Mean Corpuscular HGB Conc 32.3 GM/DL (32-36); Mean Platelet Volume 10.2 FL (9.6-12.0); Monocytes % 4.6 % (1.7-12.7); Neutrophils % 80.7 % (38.7-73.9); Platelet Count 163 T/CUMM (130-400); Red Blood Count 2.94 MC/CUMM (3.8-5.5); Red Cell Distribution Width 14.2 % (9.3-17.3); White Blood Count 8.8 T/CUMM (4-12)
[2019-01-12 05:05] LABS: Calcium 8.9 MG/DL (8.5-10.1); Osmolality,Calculated 288.5 MOS/KG (273-304)
[2019-01-12 05:30] LABS: Risk Ratio 4.79; VLDL CHOLESTEROL 71.8 MG/DL
[2019-01-12] MEDS: DORNASE ALFA 2.5 MG/2.5 ML VIAL RESP TX SCH ×2 (07:18→19:43)
[2019-01-12] MEDS: SEVELAMER CARBONATE 800 MG TABLET PO SCH ×3 (08:31→17:21)
[2019-01-12] MEDS: amLODIPine 10 MG TABLET PO SCH (08:31)
[2019-01-12] MEDS: ASPIRIN 325 MG TABLET PO SCH (08:32)
[2019-01-12] MEDS: PIPERACILLIN/TAZOBACTAM 3,375 MG in SODIUM CHLORIDE 0.9% 100 ML IV SCH ×2 (08:32→19:52)
[2019-01-12] MEDS: INSULIN GLARGINE 100 UNIT/ML SUBCUT SCH ×2 (08:32→21:31)
[2019-01-12] MEDS: PANTOPRAZOLE 40 MG TABLET PO SCH (08:32)
[2019-01-12] MEDS: carvediloL 6.25 MG TABLET PO SCH ×2 (08:32→21:30)
[2019-01-12] MEDS: GABAPENTIN 100 MG CAPSULE PO SCH ×3 (08:32→21:30)
[2019-01-12] MEDS: INSULIN REGULAR 100 UNIT/ML SUBCUT SCH ×4 (08:35→21:31)
[2019-01-13] MEDS: ALBUTEROL/IPRATROPIUM 3 ML NEB RESP TX SCH ×4 (01:52→20:07)
[2019-01-13 05:14] LABS: Basophils # 0.1 10*3/uL (0.0-0.2); Basophils % 0.8 % (0.0-0.8); Eosinophils # 0.3 10*3/uL (0.0-0.87); Eosinophils % 3.7 % (0.00-10.9); Hematocrit 31.5 VOL% (35.7-47.0); Hemoglobin 9.8 GM/DL (12.0-16.0); Immature Granulocytes % 0.5 %; Immature Granulocytes Absolute 0.04 #; Lymphocytes # 1.4 10*3/uL (1.4-4.0); Lymphocytes % 18.4 % (21.3-54.2); Mean Corpuscular HGB Conc 31.1 GM/DL (32-36); Mean Corpuscular Volume 102.3 FL (87-102); Mean Platelet Volume 10.6 FL (9.6-12.0); Monocytes % 8.5 % (1.7-12.7); NRBC # 0.02 10*3/uL; Neutrophils % 68.1 % (38.7-73.9); Platelet Count 205 T/CUMM (130-400); Red Blood Count 3.08 MC/CUMM (3.8-5.5); Red Cell Distribution Width 14.5 % (9.3-17.3); White Blood Count 7.6 T/CUMM (4-12)
[2019-01-13 05:44] LABS: Calcium 8.8 MG/DL (8.5-10.1); Osmolality,Calculated 276.8 MOS/KG (273-304)
[2019-01-13] MEDS: carvediloL 6.25 MG TABLET PO SCH ×2 (08:39→20:51)
[2019-01-13] MEDS: PANTOPRAZOLE 40 MG TABLET PO SCH (08:39)
[2019-01-13] MEDS: ASPIRIN 325 MG TABLET PO SCH (08:39)
[2019-01-13] MEDS: amLODIPine 10 MG TABLET PO SCH (08:39)
[2019-01-13] MEDS: GABAPENTIN 100 MG CAPSULE PO SCH ×3 (08:39→20:50)
[2019-01-13] MEDS: SEVELAMER CARBONATE 800 MG TABLET PO SCH ×3 (08:39→17:07)
[2019-01-13] MEDS: INSULIN GLARGINE 100 UNIT/ML SUBCUT SCH ×2 (08:40→20:52)
[2019-01-13] MEDS: INSULIN REGULAR 100 UNIT/ML SUBCUT SCH ×4 (08:40→20:50)
[2019-01-13] MEDS: DORNASE ALFA 2.5 MG/2.5 ML VIAL RESP TX SCH (08:48)
[2019-01-13] MEDS: PIPERACILLIN/TAZOBACTAM 3,375 MG in SODIUM CHLORIDE 0.9% 100 ML IV SCH ×2 (10:01→18:39)
[2019-01-13] MEDS ORDERED: LEVOFLOXACIN INJ 500 MG in PREMIX 1 EACH IV SCH (16:30)
[2019-01-14] MEDS: ALBUTEROL/IPRATROPIUM 3 ML NEB RESP TX SCH ×4 (00:34→19:01)
[2019-01-14] MEDS: PIPERACILLIN/TAZOBACTAM 3,375 MG in SODIUM CHLORIDE 0.9% 100 ML IV SCH ×2 (06:16→18:10)
[2019-01-14] MEDS: INSULIN REGULAR 100 UNIT/ML SUBCUT SCH ×3 (08:37→15:40)
[2019-01-14] MEDS: INSULIN GLARGINE 100 UNIT/ML SUBCUT SCH (08:43)
[2019-01-14] MEDS: SEVELAMER CARBONATE 800 MG TABLET PO SCH ×3 (08:43→17:14)
[2019-01-14] MEDS: GABAPENTIN 100 MG CAPSULE PO SCH ×3 (13:46→21:10)
[2019-01-14] MEDS: carvediloL 6.25 MG TABLET PO SCH ×3 (13:46→21:10)
[2019-01-14] MEDS: amLODIPine 10 MG TABLET PO SCH (14:00)
[2019-01-14] MEDS: PANTOPRAZOLE 40 MG TABLET PO SCH (14:00)
[2019-01-14] MEDS: ASPIRIN 325 MG TABLET PO SCH (14:01)
[2019-01-14 21:00] VITALS: BP 147/65
== END 2019-01-14 21:27 | disposition home or self-care (01) | DRG 193 ==
LOC: N.TELEN 15:31 → SUATTDRO 15:31
PROVIDERS: ADMIT Internal Medicine; ATTEND Internal Medicine

== ENCOUNTER 2019-09-26 21:16 | Inpatient (IN) ==
[2019-09-26] MEDS ORDERED: GLUCAGON 1 MG VIAL IM PRN ×2 (22:37→23:01)
[2019-09-26] MEDS ORDERED: DEXTROSE 50% 25 GM/50 ML VIAL IV PRN (22:37)
[2019-09-26] MEDS ORDERED: ONDANSETRON 4 MG/2 ML VIAL IV PRN (22:53)
[2019-09-26] MEDS ORDERED: DEXTROSE 10% 250 ML BAG IV PRN (23:01)
[2019-09-27] MEDS: HEPARIN 5,000 UNIT/1 ML VIAL SUBCUT SCH ×3 (00:05→16:24)
[2019-09-27] MEDS: ZINC SULFATE 220 MG CAPSULE PO SCH (08:52)
[2019-09-27] MEDS: cefTRIAXone 1,000 MG in SYRINGE 1 EACH IV SCH (08:52)
[2019-09-27] MEDS: ACETAMINOPHEN 325 MG TABLET PO PRN (08:52)
[2019-09-27] MEDS ORDERED: PANTOPRAZOLE 40 MG TABLET PO SCH (09:00)
[2019-09-27 11:52] LABS: Basophils # 0.1 10*3/uL (0.0-0.2); Basophils % 0.3 % (0.0-0.8); Eosinophils # 0.1 10*3/uL (0.0-0.87); Eosinophils % 0.5 % (0.00-10.9); Hematocrit 33.7 VOL% (35.7-47.0); Hemoglobin 10.4 GM/DL (12.0-16.0); Immature Granulocytes % 0.5 %; Immature Granulocytes Absolute 0.07 #; Lymphocytes # 1.2 10*3/uL (1.4-4.0); Lymphocytes % 8.5 % (21.3-54.2); Mean Corpuscular HGB Conc 30.9 GM/DL (32-36); Mean Corpuscular Volume 99.4 FL (87-102); Mean Platelet Volume 10.9 FL (9.6-12.0); Monocytes % 3.5 % (1.7-12.7); Neutrophils % 86.7 % (38.7-73.9); Platelet Count 125 T/CUMM (130-400); Red Blood Count 3.39 MC/CUMM (3.8-5.5); White Blood Count 14.5 T/CUMM (4-12)
[2019-09-27 12:14] LABS: Albumin 2.5 G/DL (3.4-5.0); Bilirubin,Total 0.6 MG/DL (0.2-1.0); Calcium 8.3 MG/DL (8.5-10.1); Ferritin 1494.2 ng/ml (8-252); Osmolality,Calculated 280.2 MOS/KG (273-304); Total Protein 7.1 G/DL (6.4-8.3)
[2019-09-27] MEDS: GABAPENTIN 300 MG CAPSULE PO SCH (21:35)
[2019-09-27] MEDS: carvediloL 12.5 MG TABLET PO SCH (21:35)
[2019-09-27] MEDS: gemfibroziL 600 MG TABLET PO SCH (21:35)
[2019-09-28] MEDS: HEPARIN 5,000 UNIT/1 ML VIAL SUBCUT SCH ×3 (01:30→17:22)
[2019-09-28 05:20] LABS: Basophils # 0.1 10*3/uL (0.0-0.2); Basophils % 0.6 % (0.0-0.8); Eosinophils # 0.3 10*3/uL (0.0-0.87); Eosinophils % 3.7 % (0.00-10.9); Hematocrit 31.2 VOL% (35.7-47.0); Hemoglobin 9.6 GM/DL (12.0-16.0); Immature Granulocytes % 0.5 %; Immature Granulocytes Absolute 0.04 #; Lymphocytes # 1.6 10*3/uL (1.4-4.0); Lymphocytes % 20.9 % (21.3-54.2); Mean Corpuscular HGB Conc 30.8 GM/DL (32-36); Mean Corpuscular Volume 98.7 FL (87-102); Monocytes % 5.4 % (1.7-12.7); Neutrophils % 68.9 % (38.7-73.9); Platelet Count 111 T/CUMM (130-400); Red Blood Count 3.16 MC/CUMM (3.8-5.5); Red Cell Distribution Width 14.7 % (9.3-17.3); White Blood Count 7.8 T/CUMM (4-12)
[2019-09-28 05:47] LABS: Hypochromasia 1+; Ovalocytes Slight
[2019-09-28 05:48] LABS: Microcytosis Slight; Platelet Estimate Adequate
[2019-09-28 05:50] LABS: Albumin 2.1 G/DL (3.4-5.0); Calcium 8.6 MG/DL (8.5-10.1); Osmolality,Calculated 281.2 MOS/KG (273-304); Total Protein 6.5 G/DL (6.4-8.3); Uric Acid 6.5 MG/DL (2.6-6.0)
[2019-09-28] MEDS ORDERED: AZITHROMYCIN INJ 250 MG in SODIUM CHLORIDE 0.9% 250 ML IV SCH (07:30)
[2019-09-28] MEDS: cefTRIAXone 1,000 MG in SYRINGE 1 EACH IV SCH (08:37)
[2019-09-28] MEDS: carvediloL 12.5 MG TABLET PO SCH (08:38)
[2019-09-28] MEDS: AZITHROMYCIN 250 MG TABLET PO SCH (08:38)
[2019-09-28] MEDS: gemfibroziL 600 MG TABLET PO SCH ×2 (08:38→20:39)
[2019-09-28] MEDS: ASPIRIN 325 MG TABLET PO SCH (08:38)
[2019-09-28] MEDS ORDERED: LIDOCAINE/PRILOCAINE CREAM 5 GM TUBE TOP SCH (09:30)
[2019-09-28 17:33] LABS: Hepatitis B Surface Ag Quant < 0.10 Index; Hepatitis B Surface Ag Result Negative (Negative)
[2019-09-28] MEDS: GABAPENTIN 300 MG CAPSULE PO SCH (20:39)
[2019-09-28] MEDS: carvediloL 6.25 MG TABLET PO SCH (20:43)
[2019-09-28] MEDS ORDERED: carvediloL 6.25 MG TABLET PO SCH (21:00)
[2019-09-29] MEDS: HEPARIN 5,000 UNIT/1 ML VIAL SUBCUT SCH ×3 (00:54→17:41)
[2019-09-29] MEDS: ACETAMINOPHEN 325 MG TABLET PO PRN ×3 (00:56→21:40)
[2019-09-29 05:39] LABS: Basophils # 0.1 10*3/uL (0.0-0.2); Basophils % 1.4 % (0.0-0.8); Eosinophils # 0.3 10*3/uL (0.0-0.87); Eosinophils % 5.9 % (0.00-10.9); Hematocrit 33.7 VOL% (35.7-47.0); Hemoglobin 10.3 GM/DL (12.0-16.0); Immature Granulocytes % 0.4 %; Immature Granulocytes Absolute 0.02 #; Lymphocytes # 1.5 10*3/uL (1.4-4.0); Lymphocytes % 30.1 % (21.3-54.2); Mean Corpuscular HGB Conc 30.6 GM/DL (32-36); Mean Corpuscular Volume 98.8 FL (87-102); Mean Platelet Volume 11.3 FL (9.6-12.0); Monocytes % 8.6 % (1.7-12.7); Neutrophils % 53.6 % (38.7-73.9); Platelet Count 114 T/CUMM (130-400); Red Blood Count 3.41 MC/CUMM (3.8-5.5); Red Cell Distribution Width 14.7 % (9.3-17.3); White Blood Count 4.9 T/CUMM (4-12)
[2019-09-29 05:56] LABS: Calcium 8.6 MG/DL (8.5-10.1); Osmolality,Calculated 274.1 MOS/KG (273-304); Uric Acid 4.5 MG/DL (2.6-6.0)
[2019-09-29 06:17] LABS: Hypochromasia 1+
[2019-09-29 06:18] LABS: Microcytosis 1+; Ovalocytes Few; Platelet Estimate Adequate
[2019-09-29 06:32] LABS: Risk Ratio 3.35
[2019-09-29] MEDS: carvediloL 6.25 MG TABLET PO SCH ×2 (09:35→21:00)
[2019-09-29] MEDS: gemfibroziL 600 MG TABLET PO SCH ×2 (09:35→21:00)
[2019-09-29] MEDS: ASPIRIN 325 MG TABLET PO SCH (09:35)
[2019-09-29] MEDS: ZINC SULFATE 220 MG CAPSULE PO SCH (09:36)
[2019-09-29] MEDS: AZITHROMYCIN 250 MG TABLET PO SCH (09:36)
[2019-09-29] MEDS: cefTRIAXone 1,000 MG in SYRINGE 1 EACH IV SCH (09:36)
[2019-09-29 17:58] LABS: Total Protein,Body Fluid 3.8 G/DL
[2019-09-29 18:36] LABS: Eosinophils,Pleural Fluid 24 %; Lymphocytes,Pleural Fluid 40 %; Monocytes,Pleural Fluid 19 %; Neutrophils,Pleural Fluid 17 %; RBC,Pleural Fluid 143 T/CUMM
[2019-09-29] MEDS: GABAPENTIN 300 MG CAPSULE PO SCH (21:00)
[2019-09-30] MEDS ORDERED: traMADol 50 MG TABLET PO PRN (00:23)
[2019-09-30] MEDS: HEPARIN 5,000 UNIT/1 ML VIAL SUBCUT SCH ×2 (01:29→09:56)
[2019-09-30 04:05] LABS: Basophils # 0.1 10*3/uL (0.0-0.2); Eosinophils # 0.3 10*3/uL (0.0-0.87); Eosinophils % 4.6 % (0.00-10.9); Hematocrit 32.3 VOL% (35.7-47.0); Hemoglobin 10.2 GM/DL (12.0-16.0); Immature Granulocytes % 0.3 %; Immature Granulocytes Absolute 0.02 #; Lymphocytes # 1.6 10*3/uL (1.4-4.0); Lymphocytes % 26.2 % (21.3-54.2); Mean Corpuscular HGB Conc 31.6 GM/DL (32-36); Mean Corpuscular Volume 97.9 FL (87-102); Mean Platelet Volume 11.3 FL (9.6-12.0); Monocytes % 6.9 % (1.7-12.7); Platelet Count 127 T/CUMM (130-400); Red Cell Distribution Width 14.7 % (9.3-17.3); White Blood Count 6.3 T/CUMM (4-12)
[2019-09-30 04:31] LABS: Calcium 8.5 MG/DL (8.5-10.1)
[2019-09-30 05:24] LABS: Hypochromasia 1+; Microcytosis 1+; Platelet Estimate Adequate
[2019-09-30 05:25] LABS: Ovalocytes Slight
[2019-09-30] MEDS: cefTRIAXone 1,000 MG in SYRINGE 1 EACH IV SCH (08:05)
[2019-09-30] MEDS: gemfibroziL 600 MG TABLET PO SCH (08:08)
[2019-09-30] MEDS: ASPIRIN 325 MG TABLET PO SCH (08:08)
[2019-09-30] MEDS: carvediloL 6.25 MG TABLET PO SCH (08:08)
[2019-09-30] MEDS: AZITHROMYCIN 250 MG TABLET PO SCH (08:09)
[2019-09-30 11:34] VITALS: BP 156/58
== END 2019-09-30 14:15 | disposition home or self-care (01) | DRG 291 ==
LOC: SUATTDRO 22:26 → N.2E 22:26
PROVIDERS: ADMIT Internal Medicine; ATTEND Internal Medicine

== ENCOUNTER 2020-05-18 04:49 | Inpatient (IN) ==
[2020-05-18] MEDS ORDERED: methylPREDNISolone SOD SUC 125 MG/2 ML VIAL IV STA (04:56)
[2020-05-18] MEDS ORDERED: valACYclovir 500 MG TABLET PO ONE (04:56)
[2020-05-18] MEDS ORDERED: valACYclovir 500 MG TABLET ONE (05:01)
[2020-05-18] MEDS ORDERED: methylPREDNISolone SOD SUC 125 MG/2 ML VIAL ONE (05:01)
[2020-05-18] MEDS ORDERED: PANTOPRAZOLE 40 MG VIAL IV STA (05:02)
[2020-05-18] MEDS ORDERED: ONDANSETRON 4 MG/2 ML VIAL IV STA (05:02)
[2020-05-18] MEDS ORDERED: HYDROmorphone 2 MG/1 ML VIAL IV STA (05:02)
[2020-05-18] MEDS ORDERED: PIPERACILLIN/TAZOBACTAM 3,375 MG in SODIUM CHLORIDE 0.9% 100 ML IV STA (05:02)
[2020-05-18] MEDS ORDERED: GLUCAGON 1 MG VIAL IM PRN (06:55)
[2020-05-18] MEDS ORDERED: ONDANSETRON 4 MG/2 ML VIAL IV PRN (06:55)
[2020-05-18] MEDS ORDERED: HYDROmorphone 2 MG/1 ML VIAL IV PRN (06:55)
[2020-05-18] MEDS ORDERED: DEXTROSE 50% 25 GM/50 ML VIAL IV PRN (06:55)
[2020-05-18 07:15] LABS: Basophils # 0.1 10*3/uL (0.0-0.2); Basophils % 0.9 % (0.0-0.8); Eosinophils # 0.3 10*3/uL (0.0-0.87); Hematocrit 38.5 VOL% (35.7-47.0); Hemoglobin 12.3 GM/DL (12.0-16.0); Immature Granulocytes % 1.4 %; Immature Granulocytes Absolute 0.18 #; Lymphocytes # 1.8 10*3/uL (1.4-4.0); Lymphocytes % 13.8 % (21.3-54.2); Mean Corpuscular HGB Conc 31.9 GM/DL (32-36); Mean Corpuscular Volume 101.3 FL (87-102); Mean Platelet Volume 9.8 FL (9.6-12.0); Monocytes % 5.6 % (1.7-12.7); Neutrophils % 76.3 % (38.7-73.9); Platelet Count 255 T/CUMM (130-400); Red Cell Distribution Width 15.3 % (9.3-17.3); White Blood Count 12.8 T/CUMM (4-12)
[2020-05-18] MEDS: SODIUM CHLORIDE 0.9% 1,000 ML IV SCH (07:15)
[2020-05-18] MEDS: INSULIN REGULAR 100 UNIT/ML SUBCUT SCH ×3 (07:16→17:28)
[2020-05-18 07:38] LABS: Albumin 2.6 G/DL (3.4-5.0); Bilirubin,Total 0.7 MG/DL (0.2-1.0); Calcium 10.1 MG/DL (8.5-10.1); Potassium 4.6 MMOL/L (3.5-5.1); Total Protein 8.8 G/DL (6.4-8.3)
[2020-05-18] MEDS: PANTOPRAZOLE 40 MG VIAL IV SCH (08:27)
[2020-05-18] MEDS ORDERED: PHENOL 1.4% THROAT SPRAY 177 ML BOTTLE PO PRN (11:11)
[2020-05-18] MEDS: PIPERACILLIN/TAZOBACTAM 3,375 MG in SODIUM CHLORIDE 0.9% 100 ML IV SCH (17:45)
[2020-05-18] MEDS ORDERED: PIPERACILLIN/TAZOBACTAM 3.375 MG in SODIUM CHLORIDE 0.9% 100 ML IV SCH (18:00)
[2020-05-19] MEDS: INSULIN REGULAR 100 UNIT/ML SUBCUT SCH ×4 (00:08→18:43)
[2020-05-19 05:57] LABS: Basophils # 0.1 10*3/uL (0.0-0.2); Basophils % 0.9 % (0.0-0.8); Eosinophils # 0.2 10*3/uL (0.0-0.87); Eosinophils % 1.3 % (0.00-10.9); Hematocrit 37.8 VOL% (35.7-47.0); Hemoglobin 12.1 GM/DL (12.0-16.0); Immature Granulocytes Absolute 0.11 #; Lymphocytes % 17.3 % (21.3-54.2); Mean Corpuscular Volume 101.3 FL (87-102); Mean Platelet Volume 9.8 FL (9.6-12.0); Monocytes % 8.9 % (1.7-12.7); Neutrophils % 70.6 % (38.7-73.9); Platelet Count 236 T/CUMM (130-400); Red Blood Count 3.73 MC/CUMM (3.8-5.5); Red Cell Distribution Width 15.2 % (9.3-17.3); White Blood Count 11.5 T/CUMM (4-12)
[2020-05-19 06:14] LABS: Albumin 2.4 G/DL (3.4-5.0); Bilirubin,Total 0.7 MG/DL (0.2-1.0); Osmolality,Calculated 288.1 MOS/KG (273-304); Potassium 5.4 MMOL/L (3.5-5.1); Total Protein 8.1 G/DL (6.4-8.3)
[2020-05-19] MEDS: PIPERACILLIN/TAZOBACTAM 3,375 MG in SODIUM CHLORIDE 0.9% 100 ML IV SCH ×2 (06:14→21:19)
[2020-05-19] MEDS: PANTOPRAZOLE 40 MG VIAL IV SCH (08:24)
[2020-05-19] MEDS: SODIUM CHLORIDE 0.9% 1,000 ML IV SCH (08:33)
[2020-05-19] MEDS: ALBUTEROL/IPRATROPIUM 3 ML NEB RESP TX SCH ×2 (13:01→20:26)
[2020-05-20] MEDS: INSULIN REGULAR 100 UNIT/ML SUBCUT SCH ×5 (00:48→23:21)
[2020-05-20] MEDS: ALBUTEROL/IPRATROPIUM 3 ML NEB RESP TX SCH ×5 (01:12→19:11)
[2020-05-20 06:35] LABS: Basophils # 0.1 10*3/uL (0.0-0.2); Basophils % 0.6 % (0.0-0.8); Eosinophils # 0.2 10*3/uL (0.0-0.87); Eosinophils % 1.3 % (0.00-10.9); Hemoglobin 11.6 GM/DL (12.0-16.0); Immature Granulocytes % 0.7 %; Immature Granulocytes Absolute 0.09 #; Lymphocytes # 1.5 10*3/uL (1.4-4.0); Lymphocytes % 11.2 % (21.3-54.2); Mean Corpuscular HGB Conc 32.2 GM/DL (32-36); Mean Corpuscular Volume 101.1 FL (87-102); Mean Platelet Volume 10.4 FL (9.6-12.0); Monocytes % 8.3 % (1.7-12.7); Neutrophils % 77.9 % (38.7-73.9); Platelet Count 191 T/CUMM (130-400); Red Blood Count 3.56 MC/CUMM (3.8-5.5); Red Cell Distribution Width 15.1 % (9.3-17.3); White Blood Count 13.5 T/CUMM (4-12)
[2020-05-20 07:19] LABS: Albumin 2.3 G/DL (3.4-5.0); Bilirubin,Total 0.6 MG/DL (0.2-1.0); Calcium 9.3 MG/DL (8.5-10.1); Osmolality,Calculated 274.1 MOS/KG (273-304); Potassium 4.5 MMOL/L (3.5-5.1)
[2020-05-20] MEDS: PIPERACILLIN/TAZOBACTAM 3,375 MG in SODIUM CHLORIDE 0.9% 100 ML IV SCH ×2 (09:05→20:27)
[2020-05-20] MEDS: PANTOPRAZOLE 40 MG VIAL IV SCH (09:07)
[2020-05-21] MEDS: ALBUTEROL/IPRATROPIUM 3 ML NEB RESP TX SCH ×4 (01:55→18:42)
[2020-05-21 06:45] LABS: Basophils # 0.1 10*3/uL (0.0-0.2); Basophils % 0.8 % (0.0-0.8); Eosinophils # 0.5 10*3/uL (0.0-0.87); Eosinophils % 4.4 % (0.00-10.9); Hematocrit 35.6 VOL% (35.7-47.0); Hemoglobin 11.4 GM/DL (12.0-16.0); Immature Granulocytes % 0.9 %; Immature Granulocytes Absolute 0.09 #; Lymphocytes # 1.7 10*3/uL (1.4-4.0); Lymphocytes % 16.5 % (21.3-54.2); Mean Corpuscular Volume 100.3 FL (87-102); Mean Platelet Volume 10.1 FL (9.6-12.0); Monocytes % 11.4 % (1.7-12.7); NRBC # 0.02 10*3/uL; Platelet Count 204 T/CUMM (130-400); Red Blood Count 3.55 MC/CUMM (3.8-5.5); Red Cell Distribution Width 14.8 % (9.3-17.3); White Blood Count 10.3 T/CUMM (4-12)
[2020-05-21 07:14] LABS: Albumin 2.2 G/DL (3.4-5.0); Bilirubin,Total 0.6 MG/DL (0.2-1.0); Calcium 8.9 MG/DL (8.5-10.1); Osmolality,Calculated 282.2 MOS/KG (273-304); Potassium 4.1 MMOL/L (3.5-5.1); Total Protein 7.8 G/DL (6.4-8.3)
[2020-05-21] MEDS: PIPERACILLIN/TAZOBACTAM 3,375 MG in SODIUM CHLORIDE 0.9% 100 ML IV SCH ×2 (08:06→22:13)
[2020-05-21] MEDS: PANTOPRAZOLE 40 MG VIAL IV SCH (08:06)
[2020-05-21] MEDS: INSULIN REGULAR 100 UNIT/ML SUBCUT SCH (11:34)
[2020-05-21] MEDS: SEVELAMER CARBONATE 800 MG TABLET PO SCH ×2 (11:35→16:41)
[2020-05-21] MEDS: carvediloL 6.25 MG TABLET PO SCH (16:41)
[2020-05-21] MEDS: GABAPENTIN 300 MG CAPSULE PO SCH (22:04)
[2020-05-21] MEDS: gemfibroziL 600 MG TABLET PO SCH (22:07)
[2020-05-21] MEDS: ACETAMINOPHEN 325 MG TABLET PO PRN (22:10)
[2020-05-22] MEDS: INSULIN REGULAR 100 UNIT/ML SUBCUT SCH ×4 (00:41→19:48)
[2020-05-22] MEDS: ALBUTEROL/IPRATROPIUM 3 ML NEB RESP TX SCH ×4 (01:17→19:21)
[2020-05-22] MEDS: traMADol 50 MG TABLET PO PRN ×2 (02:03→21:43)
[2020-05-22] MEDS ORDERED: BISACODYL 10 MG SUPP RECTAL ONE (08:08)
[2020-05-22] MEDS: MULTIVITAMIN (CENTRUM) TABLET PO SCH (10:09)
[2020-05-22] MEDS: carvediloL 6.25 MG TABLET PO SCH ×2 (10:09→17:41)
[2020-05-22] MEDS: ASPIRIN EC 81 MG TABLET PO SCH (10:09)
[2020-05-22] MEDS: SEVELAMER CARBONATE 800 MG TABLET PO SCH ×3 (10:09→17:41)
[2020-05-22] MEDS: gemfibroziL 600 MG TABLET PO SCH ×2 (10:10→21:38)
[2020-05-22] MEDS: LORATADINE 10 MG TABLET PO SCH (10:10)
[2020-05-22] MEDS: PIPERACILLIN/TAZOBACTAM 3,375 MG in SODIUM CHLORIDE 0.9% 100 ML IV SCH ×2 (10:10→21:40)
[2020-05-22] MEDS: PANTOPRAZOLE 40 MG VIAL IV SCH (10:10)
[2020-05-22] MEDS: ACETAMINOPHEN 325 MG TABLET PO PRN (14:08)
[2020-05-22] MEDS: GABAPENTIN 300 MG CAPSULE PO SCH (21:38)
[2020-05-23] MEDS: ACETAMINOPHEN 325 MG TABLET PO PRN ×2 (01:27→23:14)
[2020-05-23] MEDS: INSULIN REGULAR 100 UNIT/ML SUBCUT SCH ×8 (01:28→23:22)
[2020-05-23 05:25] LABS: Basophils # 0.1 10*3/uL (0.0-0.2); Basophils % 0.6 % (0.0-0.8); Eosinophils # 0.4 10*3/uL (0.0-0.87); Eosinophils % 3.4 % (0.00-10.9); Hematocrit 37.4 VOL% (35.7-47.0); Hemoglobin 12.3 GM/DL (12.0-16.0); Immature Granulocytes % 0.4 %; Immature Granulocytes Absolute 0.05 #; Lymphocytes % 7.8 % (21.3-54.2); Mean Corpuscular HGB Conc 32.9 GM/DL (32-36); Mean Corpuscular Volume 100.5 FL (87-102); Mean Platelet Volume 10.4 FL (9.6-12.0); Monocytes % 7.3 % (1.7-12.7); Neutrophils % 80.5 % (38.7-73.9); Platelet Count 202 T/CUMM (130-400); Red Blood Count 3.72 MC/CUMM (3.8-5.5); Red Cell Distribution Width 15.4 % (9.3-17.3); White Blood Count 12.8 T/CUMM (4-12)
[2020-05-23 05:51] LABS: Osmolality,Calculated 278.7 MOS/KG (273-304); Potassium 3.9 MMOL/L (3.5-5.1)
[2020-05-23] MEDS: ALBUTEROL/IPRATROPIUM 3 ML NEB RESP TX SCH ×4 (06:45→19:18)
[2020-05-23] MEDS: carvediloL 6.25 MG TABLET PO SCH ×2 (08:38→17:41)
[2020-05-23] MEDS: MULTIVITAMIN (CENTRUM) TABLET PO SCH (08:58)
[2020-05-23] MEDS: ASPIRIN EC 81 MG TABLET PO SCH (08:58)
[2020-05-23] MEDS: gemfibroziL 600 MG TABLET PO SCH ×2 (08:59→20:32)
[2020-05-23] MEDS: SEVELAMER CARBONATE 800 MG TABLET PO SCH ×3 (08:59→17:41)
[2020-05-23] MEDS: LORATADINE 10 MG TABLET PO SCH (08:59)
[2020-05-23] MEDS: PANTOPRAZOLE 40 MG VIAL IV SCH (09:01)
[2020-05-23] MEDS: PIPERACILLIN/TAZOBACTAM 3,375 MG in SODIUM CHLORIDE 0.9% 100 ML IV SCH ×2 (09:47→20:32)
[2020-05-23] MEDS ORDERED: ALUMINUM/MAGNES/SIMETH MAX STR 30 ML UDCUP PO ONE (18:28)
[2020-05-23] MEDS: GABAPENTIN 300 MG CAPSULE PO SCH (20:31)
[2020-05-23] MEDS: traMADol 50 MG TABLET PO PRN (20:41)
[2020-05-24] MEDS: ALBUTEROL/IPRATROPIUM 3 ML NEB RESP TX SCH ×4 (00:05→19:02)
[2020-05-24] MEDS: INSULIN REGULAR 100 UNIT/ML SUBCUT SCH ×3 (05:45→18:12)
[2020-05-24 06:18] LABS: Basophils # 0.1 10*3/uL (0.0-0.2); Basophils % 0.7 % (0.0-0.8); Eosinophils # 0.4 10*3/uL (0.0-0.87); Eosinophils % 3.1 % (0.00-10.9); Hematocrit 38.6 VOL% (35.7-47.0); Immature Granulocytes % 0.8 %; Lymphocytes # 1.3 10*3/uL (1.4-4.0); Lymphocytes % 10.6 % (21.3-54.2); Mean Corpuscular HGB Conc 33.7 GM/DL (32-36); Mean Corpuscular Volume 97.2 FL (87-102); Monocytes % 10.1 % (1.7-12.7); Neutrophils % 74.7 % (38.7-73.9); Platelet Count 171 T/CUMM (130-400); Red Blood Count 3.97 MC/CUMM (3.8-5.5); Red Cell Distribution Width 15.4 % (9.3-17.3)
[2020-05-24 07:08] LABS: Calcium 10.5 MG/DL (8.5-10.1); Osmolality,Calculated 265.1 MOS/KG (273-304); Potassium 3.8 MMOL/L (3.5-5.1)
[2020-05-24] MEDS: SEVELAMER CARBONATE 800 MG TABLET PO SCH ×3 (10:33→18:28)
[2020-05-24] MEDS: gemfibroziL 600 MG TABLET PO SCH ×2 (13:10→21:32)
[2020-05-24] MEDS: LORATADINE 10 MG TABLET PO SCH (13:10)
[2020-05-24] MEDS: ASPIRIN EC 81 MG TABLET PO SCH (13:10)
[2020-05-24] MEDS: MULTIVITAMIN (CENTRUM) TABLET PO SCH (13:10)
[2020-05-24] MEDS: PIPERACILLIN/TAZOBACTAM 3,375 MG in SODIUM CHLORIDE 0.9% 100 ML IV SCH ×2 (13:11→21:33)
[2020-05-24] MEDS: PANTOPRAZOLE 40 MG VIAL IV SCH (13:12)
[2020-05-24] MEDS: carvediloL 6.25 MG TABLET PO SCH ×2 (14:21→18:28)
[2020-05-24] MEDS: traMADol 50 MG TABLET PO PRN (21:32)
[2020-05-24] MEDS: GABAPENTIN 300 MG CAPSULE PO SCH (21:32)
[2020-05-25] MEDS: ALBUTEROL/IPRATROPIUM 3 ML NEB RESP TX SCH ×2 (00:42→09:28)
[2020-05-25] MEDS: INSULIN REGULAR 100 UNIT/ML SUBCUT SCH ×2 (01:59→05:22)
[2020-05-25] MEDS: SEVELAMER CARBONATE 800 MG TABLET PO SCH (08:50)
[2020-05-25] MEDS: MULTIVITAMIN (CENTRUM) TABLET PO SCH (08:50)
[2020-05-25] MEDS: ASPIRIN EC 81 MG TABLET PO SCH (08:50)
[2020-05-25] MEDS: gemfibroziL 600 MG TABLET PO SCH (08:50)
[2020-05-25] MEDS: LORATADINE 10 MG TABLET PO SCH (08:50)
[2020-05-25] MEDS: PANTOPRAZOLE 40 MG VIAL IV SCH (08:53)
[2020-05-25] MEDS: PIPERACILLIN/TAZOBACTAM 3,375 MG in SODIUM CHLORIDE 0.9% 100 ML IV SCH (08:53)
[2020-05-25] MEDS: carvediloL 6.25 MG TABLET PO SCH (10:11)
[2020-05-25 12:11] VITALS: BP 99/36
== END 2020-05-25 12:35 | disposition home or self-care (01) | DRG 388 ==
LOC: EDUNIT# → EDBD → N.ED 04:49 → N.EDINP 05:12 → N.3E 06:40
PROVIDERS: ADMIT Surgery; ATTEND Surgery

== ENCOUNTER 2020-05-30 12:24 | Inpatient (IN) ==
[2020-05-30] MEDS ORDERED: ONDANSETRON 4 MG/2 ML VIAL IV PRN (16:42)
[2020-05-30] MEDS ORDERED: MAGNESIUM HYDROXIDE SUSP 30 ML UDCUP PO PRN (16:42)
[2020-05-30] MEDS ORDERED: DEXTROSE 50% 25 GM/50 ML VIAL IV PRN (16:42)
[2020-05-30] MEDS ORDERED: GLUCAGON 1 MG VIAL IM PRN (16:42)
[2020-05-30] MEDS: DEXTROSE 5% 1,000 ML IV SCH (17:10)
[2020-05-30 17:46] LABS: Basophils # 0.1 10*3/uL (0.0-0.2); Eosinophils # 0.3 10*3/uL (0.0-0.87); Hematocrit 39.3 VOL% (35.7-47.0); Hemoglobin 12.5 GM/DL (12.0-16.0); Immature Granulocytes % 1.5 %; Immature Granulocytes Absolute 0.21 #; Lymphocytes # 1.7 10*3/uL (1.4-4.0); Mean Corpuscular HGB Conc 31.8 GM/DL (32-36); Mean Corpuscular Volume 98.5 FL (87-102); Mean Platelet Volume 10.6 FL (9.6-12.0); Monocytes % 6.6 % (1.7-12.7); NRBC # 0.14 10*3/uL; Neutrophils % 76.9 % (38.7-73.9); Platelet Count 322 T/CUMM (130-400); Red Blood Count 3.99 MC/CUMM (3.8-5.5); Red Cell Distribution Width 16.2 % (9.3-17.3)
[2020-05-30 17:49] LABS: Albumin 2.3 G/DL (3.4-5.0); Bilirubin,Total 0.6 MG/DL (0.2-1.0); Calcium 9.6 MG/DL (8.5-10.1); Osmolality,Calculated 283.7 MOS/KG (273-304); Potassium 4.5 MMOL/L (3.5-5.1); Total Protein 8.3 G/DL (6.4-8.3)
[2020-05-30] MEDS: INSULIN REGULAR 100 UNIT/ML SUBCUT SCH (20:54)
[2020-05-30] MEDS: INSULIN GLARGINE 100 UNIT/ML SUBCUT SCH (20:55)
[2020-05-30] MEDS: DOCUSATE SODIUM 100 MG CAPSULE PO SCH (20:58)
[2020-05-30] MEDS ORDERED: ALBUTEROL/IPRATROPIUM 3 ML NEB RESP TX SCH (21:00)
[2020-05-31] MEDS: ACETAMINOPHEN 325 MG TABLET PO PRN ×3 (02:37→22:44)
[2020-05-31 05:31] LABS: Basophils # 0.1 10*3/uL (0.0-0.2); Basophils % 0.8 % (0.0-0.8); Eosinophils # 0.4 10*3/uL (0.0-0.87); Eosinophils % 3.1 % (0.00-10.9); Hematocrit 35.2 VOL% (35.7-47.0); Hemoglobin 11.6 GM/DL (12.0-16.0); Immature Granulocytes % 1.5 %; Immature Granulocytes Absolute 0.19 #; Lymphocytes # 1.4 10*3/uL (1.4-4.0); Mean Corpuscular Volume 98.6 FL (87-102); Mean Platelet Volume 10.4 FL (9.6-12.0); Monocytes % 5.1 % (1.7-12.7); NRBC # 0.15 10*3/uL; Neutrophils % 78.5 % (38.7-73.9); Platelet Count 270 T/CUMM (130-400); Red Blood Count 3.57 MC/CUMM (3.8-5.5); Red Cell Distribution Width 16.2 % (9.3-17.3)
[2020-05-31 06:11] LABS: Calcium 8.9 MG/DL (8.5-10.1); Osmolality,Calculated 272.2 MOS/KG (273-304); Potassium 3.5 MMOL/L (3.5-5.1); VLDL CHOLESTEROL 43.6 MG/DL
[2020-05-31] MEDS: INSULIN REGULAR 100 UNIT/ML SUBCUT SCH ×4 (09:17→20:05)
[2020-05-31] MEDS: SEVELAMER CARBONATE 800 MG TABLET PO SCH ×3 (09:19→18:41)
[2020-05-31] MEDS: PANTOPRAZOLE 40 MG TABLET PO SCH (09:19)
[2020-05-31] MEDS: DOCUSATE SODIUM 100 MG CAPSULE PO SCH ×2 (09:19→20:09)
[2020-05-31] MEDS: ASPIRIN EC 81 MG TABLET PO SCH (09:19)
[2020-05-31] MEDS: LORATADINE 10 MG TABLET PO SCH (09:19)
[2020-05-31] MEDS: ALBUTEROL/IPRATROPIUM 3 ML NEB RESP TX SCH ×3 (10:40→20:03)
[2020-05-31] MEDS: DEXTROSE 5% 1,000 ML IV SCH (13:09)
[2020-05-31] MEDS: traMADol 50 MG TABLET PO PRN (20:09)
[2020-05-31] MEDS: INSULIN GLARGINE 100 UNIT/ML SUBCUT SCH (20:09)
[2020-05-31] MEDS: gemfibroziL 600 MG TABLET PO SCH (22:43)
[2020-06-01 05:00] LABS: Basophils # 0.1 10*3/uL (0.0-0.2); Basophils % 0.5 % (0.0-0.8); Eosinophils # 0.2 10*3/uL (0.0-0.87); Hematocrit 32.6 VOL% (35.7-47.0); Hemoglobin 10.5 GM/DL (12.0-16.0); Immature Granulocytes % 0.8 %; Lymphocytes % 7.9 % (21.3-54.2); Mean Corpuscular HGB Conc 32.2 GM/DL (32-36); Mean Platelet Volume 10.7 FL (9.6-12.0); Monocytes % 5.6 % (1.7-12.7); NRBC # 0.03 10*3/uL; Neutrophils % 83.2 % (38.7-73.9); Platelet Count 209 T/CUMM (130-400); Red Blood Count 3.26 MC/CUMM (3.8-5.5); Red Cell Distribution Width 16.3 % (9.3-17.3); White Blood Count 12.1 T/CUMM (4-12)
[2020-06-01] MEDS: ACETAMINOPHEN 325 MG TABLET PO PRN ×3 (05:02→20:45)
[2020-06-01 05:28] LABS: Calcium 8.5 MG/DL (8.5-10.1); Osmolality,Calculated 273.2 MOS/KG (273-304); Potassium 3.3 MMOL/L (3.5-5.1)
[2020-06-01] MEDS: ALBUTEROL/IPRATROPIUM 3 ML NEB RESP TX SCH ×4 (07:00→19:20)
[2020-06-01] MEDS: INSULIN REGULAR 100 UNIT/ML SUBCUT SCH ×4 (07:34→20:44)
[2020-06-01] MEDS: DOCUSATE SODIUM 100 MG CAPSULE PO SCH ×2 (09:36→21:18)
[2020-06-01] MEDS: LORATADINE 10 MG TABLET PO SCH (09:36)
[2020-06-01] MEDS: SEVELAMER CARBONATE 800 MG TABLET PO SCH ×3 (09:36→17:06)
[2020-06-01] MEDS: gemfibroziL 600 MG TABLET PO SCH ×2 (09:36→20:45)
[2020-06-01] MEDS: ASPIRIN EC 81 MG TABLET PO SCH (09:36)
[2020-06-01] MEDS: PANTOPRAZOLE 40 MG TABLET PO SCH (09:36)
[2020-06-01] MEDS: traMADol 50 MG TABLET PO PRN (18:02)
[2020-06-01] MEDS: DEXTROSE 5% 1,000 ML IV SCH (18:02)
[2020-06-01] MEDS: INSULIN GLARGINE 100 UNIT/ML SUBCUT SCH (20:44)
[2020-06-01] MEDS: NEOMYCIN/POLYMYXIN/HC OTIC SOLN 10 ML BOTTLE RIGHT EAR SCH (20:44)
[2020-06-01] MEDS: GABAPENTIN 300 MG CAPSULE PO SCH (23:16)
[2020-06-02 06:00] LABS: Basophils # 0.1 10*3/uL (0.0-0.2); Basophils % 0.4 % (0.0-0.8); Eosinophils # 0.3 10*3/uL (0.0-0.87); Eosinophils % 1.4 % (0.00-10.9); Hematocrit 31.6 VOL% (35.7-47.0); Hemoglobin 10.4 GM/DL (12.0-16.0); Immature Granulocytes % 0.9 %; Lymphocytes # 1.4 10*3/uL (1.4-4.0); Lymphocytes % 6.7 % (21.3-54.2); Mean Corpuscular HGB Conc 32.9 GM/DL (32-36); Mean Corpuscular Volume 101.3 FL (87-102); Mean Platelet Volume 10.9 FL (9.6-12.0); Monocytes % 4.4 % (1.7-12.7); Neutrophils % 86.2 % (38.7-73.9); Platelet Count 191 T/CUMM (130-400); Red Blood Count 3.12 MC/CUMM (3.8-5.5); Red Cell Distribution Width 16.3 % (9.3-17.3); White Blood Count 21.3 T/CUMM (4-12)
[2020-06-02 06:10] LABS: Calcium 9.3 MG/DL (8.5-10.1); Osmolality,Calculated 265.6 MOS/KG (273-304); Potassium 3.8 MMOL/L (3.5-5.1)
[2020-06-02 06:14] LABS: Albumin 1.8 G/DL (3.4-5.0); Bilirubin,Total 1.1 MG/DL (0.2-1.0); Calcium 9.2 MG/DL (8.5-10.1); Osmolality,Calculated 267.8 MOS/KG (273-304); Potassium 3.8 MMOL/L (3.5-5.1)
[2020-06-02 06:31] LABS: Eosinophils 4 % (0-10); Hypochromasia Slight; Lymphocytes 4 % (20-55); Macrocytosis 1+; Platelet Estimate Normal; Segmented Neutrophils 90 % (50-85); Total Cells Counted 100
[2020-06-02] MEDS: ALBUTEROL/IPRATROPIUM 3 ML NEB RESP TX SCH ×4 (07:17→19:20)
[2020-06-02] MEDS: INSULIN REGULAR 100 UNIT/ML SUBCUT SCH ×4 (07:30→21:17)
[2020-06-02] MEDS: NEOMYCIN/POLYMYXIN/HC OTIC SOLN 10 ML BOTTLE RIGHT EAR SCH ×2 (08:05→21:07)
[2020-06-02] MEDS: SEVELAMER CARBONATE 800 MG TABLET PO SCH ×3 (08:05→17:16)
[2020-06-02] MEDS: PANTOPRAZOLE 40 MG TABLET PO SCH (08:05)
[2020-06-02] MEDS: LORATADINE 10 MG TABLET PO SCH (08:06)
[2020-06-02] MEDS: gemfibroziL 600 MG TABLET PO SCH ×2 (08:06→21:08)
[2020-06-02] MEDS: ASPIRIN EC 81 MG TABLET PO SCH (08:06)
[2020-06-02] MEDS: traMADol 50 MG TABLET PO PRN ×2 (08:07→17:15)
[2020-06-02] MEDS: DOCUSATE SODIUM 100 MG CAPSULE PO SCH ×2 (08:30→21:08)
[2020-06-02] MEDS: DEXTROSE 5% 1,000 ML IV SCH (08:55)
[2020-06-02] MEDS ORDERED: SEVELAMER CARBONATE 800 MG TABLET PO SCH (14:00)
[2020-06-02] MEDS: ACETAMINOPHEN 500 MG TABLET PO SCH ×2 (17:16→21:16)
[2020-06-02] MEDS: GABAPENTIN 300 MG CAPSULE PO SCH (21:08)
[2020-06-02] MEDS: methylPREDNISolone SOD SUC 40 MG/1 ML VIAL IV SCH (21:08)
[2020-06-02] MEDS: INSULIN GLARGINE 100 UNIT/ML SUBCUT SCH (21:09)
[2020-06-02] MEDS: cefTRIAXone 1,000 MG in SYRINGE 1 EACH IV SCH (21:10)
[2020-06-03 06:03] LABS: Basophils # 0.1 10*3/uL (0.0-0.2); Basophils % 0.5 % (0.0-0.8); Eosinophils % 0.1 % (0.00-10.9); Hematocrit 35.7 VOL% (35.7-47.0); Hemoglobin 11.9 GM/DL (12.0-16.0); Immature Granulocytes % 1.2 %; Immature Granulocytes Absolute 0.21 #; Lymphocytes # 0.8 10*3/uL (1.4-4.0); Lymphocytes % 4.5 % (21.3-54.2); Mean Corpuscular HGB Conc 33.3 GM/DL (32-36); Mean Corpuscular Volume 99.2 FL (87-102); Mean Platelet Volume 10.7 FL (9.6-12.0); Monocytes % 2.2 % (1.7-12.7); Neutrophils % 91.5 % (38.7-73.9); Platelet Count 192 T/CUMM (130-400); Red Cell Distribution Width 16.9 % (9.3-17.3); White Blood Count 17.9 T/CUMM (4-12)
[2020-06-03 06:23] LABS: Bilirubin,Total 0.6 MG/DL (0.2-1.0); Calcium 9.7 MG/DL (8.5-10.1); Osmolality,Calculated 267.8 MOS/KG (273-304); Potassium 4.7 MMOL/L (3.5-5.1); Total Protein 8.1 G/DL (5.0-7.5)
[2020-06-03 06:37] LABS: Band Neutrophils 1 % (0-10); Lymphocytes 3 % (20-55); Platelet Estimate Adequate; Segmented Neutrophils 94 % (50-85); Total Cells Counted 100
[2020-06-03 06:39] LABS: Hypochromasia Slight; Macrocytosis Slight; Ovalocytes Slight
[2020-06-03] MEDS: ALBUTEROL/IPRATROPIUM 3 ML NEB RESP TX SCH ×4 (07:15→18:58)
[2020-06-03] MEDS: SEVELAMER CARBONATE 800 MG TABLET PO SCH ×3 (08:36→16:57)
[2020-06-03] MEDS: methylPREDNISolone SOD SUC 40 MG/1 ML VIAL IV SCH ×2 (08:36→20:43)
[2020-06-03] MEDS: ASPIRIN EC 81 MG TABLET PO SCH (08:36)
[2020-06-03] MEDS: PANTOPRAZOLE 40 MG TABLET PO SCH (08:37)
[2020-06-03] MEDS: gemfibroziL 600 MG TABLET PO SCH ×2 (08:37→20:33)
[2020-06-03] MEDS: ACETAMINOPHEN 500 MG TABLET PO SCH ×3 (08:37→20:33)
[2020-06-03] MEDS: LORATADINE 10 MG TABLET PO SCH (08:37)
[2020-06-03] MEDS: INSULIN REGULAR 100 UNIT/ML SUBCUT SCH ×4 (08:38→20:38)
[2020-06-03] MEDS: NEOMYCIN/POLYMYXIN/HC OTIC SOLN 10 ML BOTTLE RIGHT EAR SCH ×2 (08:43→20:33)
[2020-06-03] MEDS: DOCUSATE SODIUM 100 MG CAPSULE PO SCH ×2 (10:48→20:33)
[2020-06-03] MEDS: cefTRIAXone 1,000 MG in SYRINGE 1 EACH IV SCH (20:34)
[2020-06-03] MEDS: INSULIN GLARGINE 100 UNIT/ML SUBCUT SCH (20:34)
[2020-06-03] MEDS: GABAPENTIN 300 MG CAPSULE PO SCH (20:49)
[2020-06-04 05:35] LABS: Basophils % 0.3 % (0.0-0.8); Eosinophils % 0.1 % (0.00-10.9); Hematocrit 32.7 VOL% (35.7-47.0); Hemoglobin 10.5 GM/DL (12.0-16.0); Immature Granulocytes % 1.2 %; Immature Granulocytes Absolute 0.15 #; Lymphocytes # 0.9 10*3/uL (1.4-4.0); Lymphocytes % 7.6 % (21.3-54.2); Mean Corpuscular HGB Conc 32.1 GM/DL (32-36); Mean Corpuscular Volume 100.9 FL (87-102); Mean Platelet Volume 10.5 FL (9.6-12.0); Neutrophils % 85.8 % (38.7-73.9); Platelet Count 198 T/CUMM (130-400); Red Blood Count 3.24 MC/CUMM (3.8-5.5); Red Cell Distribution Width 16.9 % (9.3-17.3); White Blood Count 12.1 T/CUMM (4-12)
[2020-06-04] MEDS: ALBUTEROL/IPRATROPIUM 3 ML NEB RESP TX SCH ×4 (07:28→19:13)
[2020-06-04] MEDS: INSULIN REGULAR 100 UNIT/ML SUBCUT SCH ×4 (08:36→20:25)
[2020-06-04] MEDS: gemfibroziL 600 MG TABLET PO SCH ×2 (08:37→20:24)
[2020-06-04] MEDS: ASPIRIN EC 81 MG TABLET PO SCH (08:37)
[2020-06-04] MEDS: ACETAMINOPHEN 500 MG TABLET PO SCH ×3 (08:37→20:25)
[2020-06-04] MEDS: DOCUSATE SODIUM 100 MG CAPSULE PO SCH ×2 (08:37→20:24)
[2020-06-04] MEDS: LORATADINE 10 MG TABLET PO SCH (08:37)
[2020-06-04] MEDS: SEVELAMER CARBONATE 800 MG TABLET PO SCH ×3 (08:37→15:59)
[2020-06-04] MEDS: methylPREDNISolone SOD SUC 40 MG/1 ML VIAL IV SCH ×2 (08:37→20:27)
[2020-06-04] MEDS: PANTOPRAZOLE 40 MG TABLET PO SCH (08:37)
[2020-06-04] MEDS: NEOMYCIN/POLYMYXIN/HC OTIC SOLN 10 ML BOTTLE RIGHT EAR SCH ×2 (08:37→20:25)
[2020-06-04] MEDS: INSULIN GLARGINE 100 UNIT/ML SUBCUT SCH (20:24)
[2020-06-04] MEDS: cefTRIAXone 1,000 MG in SYRINGE 1 EACH IV SCH (20:24)
[2020-06-04] MEDS: GABAPENTIN 300 MG CAPSULE PO SCH (20:25)
[2020-06-05] MEDS: ALBUTEROL/IPRATROPIUM 3 ML NEB RESP TX SCH ×3 (07:15→14:15)
[2020-06-05] MEDS: gemfibroziL 600 MG TABLET PO SCH (08:40)
[2020-06-05] MEDS: SEVELAMER CARBONATE 800 MG TABLET PO SCH ×2 (08:40→13:39)
[2020-06-05] MEDS: LORATADINE 10 MG TABLET PO SCH (08:41)
[2020-06-05] MEDS: INSULIN REGULAR 100 UNIT/ML SUBCUT SCH ×2 (08:41→12:47)
[2020-06-05] MEDS: PANTOPRAZOLE 40 MG TABLET PO SCH (08:41)
[2020-06-05] MEDS: ACETAMINOPHEN 500 MG TABLET PO SCH ×2 (08:41→16:02)
[2020-06-05] MEDS: ASPIRIN EC 81 MG TABLET PO SCH (08:41)
[2020-06-05] MEDS: methylPREDNISolone SOD SUC 40 MG/1 ML VIAL IV SCH (08:42)
[2020-06-05] MEDS: DOCUSATE SODIUM 100 MG CAPSULE PO SCH (08:46)
[2020-06-05] MEDS: NEOMYCIN/POLYMYXIN/HC OTIC SOLN 10 ML BOTTLE RIGHT EAR SCH (08:46)
[2020-06-05 12:42] LABS: Basophils # 0.1 10*3/uL (0.0-0.2); Basophils % 0.7 % (0.0-0.8); Eosinophils % 0.3 % (0.00-10.9); Hematocrit 35.7 VOL% (35.7-47.0); Hemoglobin 11.8 GM/DL (12.0-16.0); Immature Granulocytes % 1.9 %; Lymphocytes # 0.8 10*3/uL (1.4-4.0); Lymphocytes % 7.7 % (21.3-54.2); Mean Corpuscular HGB Conc 33.1 GM/DL (32-36); Mean Corpuscular Volume 97.3 FL (87-102); Monocytes % 5.4 % (1.7-12.7); Platelet Count 225 T/CUMM (130-400); Red Blood Count 3.67 MC/CUMM (3.8-5.5); Red Cell Distribution Width 17.5 % (9.3-17.3); White Blood Count 10.4 T/CUMM (4-12)
[2020-06-05 13:43] VITALS: BP 152/73
[2020-06-05] MEDS ORDERED: cloNIDine 0.1 MG TABLET PO ONE (15:00)
[2020-06-05] MEDS ORDERED: carvediloL 3.125 MG TABLET PO SCH (17:00)
[2020-06-05] MEDS ORDERED: cloNIDine 0.1 MG TABLET PO SCH (21:00)
[2020-06-28] MEDS ORDERED: PANTOPRAZOLE 40 MG VIAL IV SCH (09:00)
== END 2020-06-05 16:27 | disposition home health service (06) | DRG 917 ==
LOC: N.5E 16:27
PROVIDERS: ADMIT Internal Medicine; ATTEND Internal Medicine

== ENCOUNTER 2020-06-27 06:06 | Inpatient (IN) ==
[2020-06-22 13:01] LABS: Basophils # 0.1 10*3/uL (0.0-0.2); Basophils % 1.7 % (0.0-0.8); Eosinophils # 0.5 10*3/uL (0.0-0.87); Eosinophils % 8.4 % (0.00-10.9); Hemoglobin 9.7 GM/DL (12.0-16.0); Immature Granulocytes % 0.3 %; Immature Granulocytes Absolute 0.02 #; Lymphocytes # 1.4 10*3/uL (1.4-4.0); Lymphocytes % 24.8 % (21.3-54.2); Mean Corpuscular HGB Conc 31.3 GM/DL (32-36); Mean Corpuscular Volume 105.8 FL (87-102); Mean Platelet Volume 10.2 FL (9.6-12.0); Monocytes % 11.6 % (1.7-12.7); Neutrophils % 53.2 % (38.7-73.9); Platelet Count 251 T/CUMM (130-400); Red Blood Count 2.93 MC/CUMM (3.8-5.5); Red Cell Distribution Width 15.4 % (9.3-17.3); White Blood Count 5.8 T/CUMM (4-12)
[2020-06-22 13:17] LABS: Calcium 8.9 MG/DL (8.5-10.1); Osmolality,Calculated 289.3 MOS/KG (273-304)
[2020-06-27] MEDS ORDERED: cefTRIAXone 1,000 MG VIAL ONE (06:10)
[2020-06-27] MEDS ORDERED: ONDANSETRON 4 MG/2 ML VIAL ONE (06:20)
[2020-06-27] MEDS ORDERED: LIDOCAINE 2% 5 ML VIAL ONE (06:20)
[2020-06-27] MEDS ORDERED: ROCURONIUM 50 MG/5 ML VIAL IV ONE (06:20)
[2020-06-27] MEDS ORDERED: fentaNYL 100 MCG/2 ML VIAL ONE ×2 (06:20→10:50)
[2020-06-27] MEDS ORDERED: propofoL 200 MG/20 ML VIAL IV ONE (06:20)
[2020-06-27] MEDS ORDERED: MIDAZOLAM 2 MG/2 ML VIAL ONE (06:21)
[2020-06-27] MEDS ORDERED: LACTATED RINGERS 1,000 ML IV SCH (06:30)
[2020-06-27] MEDS ORDERED: LIDOCAINE 1% 5 ML VIAL ONE ×2 (06:51→11:27)
[2020-06-27] MEDS ORDERED: DEXAMETHASONE 4 MG/1 ML VIAL ONE ×2 (06:51→11:27)
[2020-06-27] MEDS ORDERED: ROPIVACAINE 0.5% 30 ML VIAL ONE ×3 (06:51→11:27)
[2020-06-27 07:04] LABS: Hematocrit 32.1 VOL% (35.7-47.0); Hemoglobin 9.8 GM/DL (12.0-16.0)
[2020-06-27] MEDS ORDERED: DESMOPRESSIN 4 MCG/1 ML AMP IV ONE ×2 (07:05→07:14)
[2020-06-27] MEDS ORDERED: ePHEDrine 50 MG/ML VIAL ONE (07:25)
[2020-06-27] MEDS ORDERED: PHENYLEPHRINE 1 MG/10 ML SYRINGE IV ONE (07:25)
[2020-06-27] MEDS: SODIUM CHLORIDE 0.9% 250 ML IV SCH (07:44)
[2020-06-27] MEDS ORDERED: ETOMIDATE 40 MG/20 ML VIAL IV ONE (08:05)
[2020-06-27] MEDS ORDERED: PHENYLEPHRINE DRIP 20 MG/250 ML PREMIX IV ONE (08:35)
[2020-06-27] MEDS ORDERED: ACETAMINOPHEN 1,000 MG/100 ML VIAL IV ONE (10:18)
[2020-06-27] MEDS ORDERED: SODIUM CHLORIDE 0.9% 100 ML IV ONE (10:29)
[2020-06-27] MEDS ORDERED: SODIUM CHLORIDE 0.9% 250 ML IV ONE (10:29)
[2020-06-27] MEDS ORDERED: PROMETHAZINE 25 MG/1 ML VIAL IM PRN (11:14)
[2020-06-27] MEDS ORDERED: ONDANSETRON 4 MG/2 ML VIAL IV PRN (11:14)
[2020-06-27] MEDS ORDERED: ACETAMINOPHEN 325 MG TABLET PO PRN (11:14)
[2020-06-27] MEDS ORDERED: ALBUTEROL/IPRATROPIUM 3 ML NEB RESP TX ONE (11:24)
[2020-06-27] MEDS ORDERED: ALBUTEROL/IPRATROPIUM 3 ML NEB RESP TX PRN (11:26)
[2020-06-27] MEDS ORDERED: MAGNESIUM HYDROXIDE SUSP 30 ML UDCUP PO PRN (11:26)
[2020-06-27] MEDS ORDERED: ALBUTEROL 2.5 MG/3 ML NEB RESP TX PRN (11:26)
[2020-06-27] MEDS ORDERED: cloNIDine 0.1 MG TABLET PO PRN (11:26)
[2020-06-27] MEDS ORDERED: DEXTROSE 50% 25 GM/50 ML VIAL IV PRN ×2 (11:36→15:11)
[2020-06-27] MEDS ORDERED: GLUCAGON 1 MG VIAL IM PRN ×2 (11:36→15:11)
[2020-06-27 12:05] LABS: Basophils # 0.1 10*3/uL (0.0-0.2); Basophils % 0.8 % (0.0-0.8); Eosinophils # 0.5 10*3/uL (0.0-0.87); Eosinophils % 6.4 % (0.00-10.9); Hematocrit 31.6 VOL% (35.7-47.0); Hemoglobin 9.7 GM/DL (12.0-16.0); Immature Granulocytes % 0.5 %; Immature Granulocytes Absolute 0.04 #; Lymphocytes # 1.5 10*3/uL (1.4-4.0); Lymphocytes % 20.5 % (21.3-54.2); Mean Corpuscular HGB Conc 30.7 GM/DL (32-36); Mean Corpuscular Volume 105.3 FL (87-102); Mean Platelet Volume 11.4 FL (9.6-12.0); Monocytes % 10.8 % (1.7-12.7); Platelet Count 171 T/CUMM (130-400); Red Cell Distribution Width 15.1 % (9.3-17.3); White Blood Count 7.5 T/CUMM (4-12)
[2020-06-27 12:25] LABS: Calcium 8.1 MG/DL (8.5-10.1); Osmolality,Calculated 284.5 MOS/KG (273-304); Potassium 4.4 MMOL/L (3.5-5.1)
[2020-06-27] MEDS ORDERED: MORPHINE 4 MG/1 ML VIAL IV PRN (12:26)
[2020-06-27] MEDS: SODIUM CHLORIDE 0.9% 1,000 ML IV SCH (14:59)
[2020-06-27] MEDS: oxyCODONE/ACETAMINOPHEN 5-325 MG TABLET PO PRN (15:13)
[2020-06-27] MEDS ORDERED: INSULIN REGULAR 100 UNIT/ML SUBCUT SCH (16:30)
[2020-06-27] MEDS: MORPHINE 4 MG/1 ML VIAL IV PRN ×2 (16:30→21:47)
[2020-06-27] MEDS: INSULIN REGULAR 100 UNIT/ML SUBCUT SCH ×2 (17:50→21:39)
[2020-06-27] MEDS: carvediloL 3.125 MG TABLET PO SCH (17:51)
[2020-06-27] MEDS: ACETAMINOPHEN 325 MG TABLET PO SCH (17:52)
[2020-06-27] MEDS: gemfibroziL 600 MG TABLET PO SCH (21:38)
[2020-06-27] MEDS: DOCUSATE SODIUM 100 MG CAPSULE PO SCH (21:38)
[2020-06-27] MEDS: GABAPENTIN 300 MG CAPSULE PO SCH (21:38)
[2020-06-28] MEDS: MORPHINE 4 MG/1 ML VIAL IV PRN ×5 (01:47→23:31)
[2020-06-28] MEDS: ACETAMINOPHEN 325 MG TABLET PO SCH ×5 (02:15→22:52)
[2020-06-28 05:23] LABS: Basophils # 0.1 10*3/uL (0.0-0.2); Basophils % 0.7 % (0.0-0.8); Eosinophils # 0.3 10*3/uL (0.0-0.87); Eosinophils % 4.4 % (0.00-10.9); Hemoglobin 9.1 GM/DL (12.0-16.0); Immature Granulocytes % 0.3 %; Immature Granulocytes Absolute 0.02 #; Lymphocytes # 1.5 10*3/uL (1.4-4.0); Lymphocytes % 20.8 % (21.3-54.2); Mean Corpuscular HGB Conc 31.4 GM/DL (32-36); Mean Corpuscular Volume 105.8 FL (87-102); Mean Platelet Volume 10.4 FL (9.6-12.0); Monocytes % 8.4 % (1.7-12.7); Neutrophils % 65.4 % (38.7-73.9); Platelet Count 228 T/CUMM (130-400); Red Blood Count 2.74 MC/CUMM (3.8-5.5); Red Cell Distribution Width 15.5 % (9.3-17.3); White Blood Count 7.4 T/CUMM (4-12)
[2020-06-28 05:39] LABS: Calcium 7.9 MG/DL (8.5-10.1); Osmolality,Calculated 289.3 MOS/KG (273-304); Potassium 4.1 MMOL/L (3.5-5.1)
[2020-06-28] MEDS: carvediloL 3.125 MG TABLET PO SCH ×2 (07:05→08:36)
[2020-06-28] MEDS: SODIUM CHLORIDE 0.9% 250 ML IV SCH (08:03)
[2020-06-28] MEDS: SEVELAMER CARBONATE 800 MG TABLET PO SCH ×3 (08:34→17:05)
[2020-06-28] MEDS: INSULIN REGULAR 100 UNIT/ML SUBCUT SCH ×3 (08:34→20:02)
[2020-06-28] MEDS: oxyCODONE/ACETAMINOPHEN 5-325 MG TABLET PO PRN (08:35)
[2020-06-28] MEDS: DOCUSATE SODIUM 100 MG CAPSULE PO SCH ×2 (08:35→21:03)
[2020-06-28] MEDS: gemfibroziL 600 MG TABLET PO SCH ×2 (08:36→21:03)
[2020-06-28] MEDS: LORATADINE 10 MG TABLET PO SCH (08:36)
[2020-06-28] MEDS: GABAPENTIN 300 MG CAPSULE PO SCH (21:03)
[2020-06-29] MEDS: ACETAMINOPHEN 325 MG TABLET PO SCH ×3 (04:59→16:12)
[2020-06-29 06:23] LABS: Basophils # 0.1 10*3/uL (0.0-0.2); Basophils % 0.9 % (0.0-0.8); Eosinophils # 0.6 10*3/uL (0.0-0.87); Eosinophils % 6.7 % (0.00-10.9); Hematocrit 30.6 VOL% (35.7-47.0); Hemoglobin 9.5 GM/DL (12.0-16.0); Immature Granulocytes % 0.5 %; Immature Granulocytes Absolute 0.05 #; Lymphocytes # 1.5 10*3/uL (1.4-4.0); Lymphocytes % 16.5 % (21.3-54.2); Mean Corpuscular Volume 103.4 FL (87-102); Mean Platelet Volume 10.1 FL (9.6-12.0); Monocytes % 7.7 % (1.7-12.7); Neutrophils % 67.7 % (38.7-73.9); Platelet Count 216 T/CUMM (130-400); Red Blood Count 2.96 MC/CUMM (3.8-5.5); Red Cell Distribution Width 15.4 % (9.3-17.3); White Blood Count 9.3 T/CUMM (4-12)
[2020-06-29 06:43] LABS: Albumin 2.3 G/DL (3.4-5.0); Bilirubin,Total 1.3 MG/DL (0.2-1.0); Calcium 8.6 MG/DL (8.5-10.1); Total Protein 7.1 G/DL (6.4-8.2)
[2020-06-29] MEDS: LORATADINE 10 MG TABLET PO SCH (08:46)
[2020-06-29] MEDS: DOCUSATE SODIUM 100 MG CAPSULE PO SCH ×2 (08:46→21:24)
[2020-06-29] MEDS: gemfibroziL 600 MG TABLET PO SCH ×2 (08:46→21:24)
[2020-06-29] MEDS: carvediloL 3.125 MG TABLET PO SCH ×2 (08:46→18:46)
[2020-06-29] MEDS: SEVELAMER CARBONATE 800 MG TABLET PO SCH ×3 (08:47→16:13)
[2020-06-29] MEDS: SODIUM CHLORIDE 0.9% 250 ML IV SCH ×2 (10:35→10:36)
[2020-06-29] MEDS: SODIUM CHLORIDE 0.9% 1,000 ML IV SCH ×4 (10:43→11:57)
[2020-06-29] MEDS: INSULIN REGULAR 100 UNIT/ML SUBCUT SCH ×4 (10:44→21:23)
[2020-06-29] MEDS: MORPHINE 4 MG/1 ML VIAL IV PRN (11:25)
[2020-06-29] MEDS ORDERED: LIDOCAINE 2% 5 ML VIAL ONE (12:40)
[2020-06-29] MEDS ORDERED: propofoL 200 MG/20 ML VIAL IV ONE (12:40)
[2020-06-29] MEDS ORDERED: ETOMIDATE 20 MG/10 ML VIAL IV ONE (12:40)
[2020-06-29] MEDS ORDERED: FLUCONAZOLE INJ 100 MG in IV BAG 1 EACH IV SCH (15:30)
[2020-06-29] MEDS: GABAPENTIN 300 MG CAPSULE PO SCH (21:23)
[2020-06-30] MEDS: ACETAMINOPHEN 325 MG TABLET PO SCH ×3 (00:06→13:21)
[2020-06-30] MEDS: INSULIN REGULAR 100 UNIT/ML SUBCUT SCH ×2 (08:05→13:22)
[2020-06-30] MEDS: gemfibroziL 600 MG TABLET PO SCH (08:17)
[2020-06-30] MEDS: carvediloL 3.125 MG TABLET PO SCH (08:17)
[2020-06-30] MEDS: LORATADINE 10 MG TABLET PO SCH (08:18)
[2020-06-30] MEDS: DOCUSATE SODIUM 100 MG CAPSULE PO SCH (08:18)
[2020-06-30] MEDS: SEVELAMER CARBONATE 800 MG TABLET PO SCH ×2 (08:18→13:20)
[2020-06-30] MEDS: oxyCODONE/ACETAMINOPHEN 5-325 MG TABLET PO PRN (08:28)
[2020-06-30] MEDS: SODIUM CHLORIDE 0.9% 1,000 ML IV SCH ×2 (08:30→12:55)
[2020-06-30 15:19] VITALS: BP 166/52
== END 2020-06-30 14:15 | disposition home health service (06) | DRG 656 ==
LOC: N.OR 06:06 → N.SDSINP 06:06 → N.4E 11:53
PROVIDERS: ADMIT Internal Medicine; ATTEND Surgery